=== PATIENT | female | born 1935 | race Caucasian/White ===

== ENCOUNTER 2017-04-07 08:25 | Emergency (ER) | payer MEDICARE, BC ==
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
--- NOTE | 2017-04-07 10:26 | CT ---
Head wo Cont HISTORY: Confusion Axial spiral noncontrasted CT scan of the brain was obtained along with high-resolution bone window r econstructions. There are no prior exams for comparison. FINDINGS: No acute intracranial hemorrhage or infarct is identified. I see no mass lesion, mass effec t, or midline shift. Vague low-attenuation changes are seen throughout the deep white matter cerebral hemispheres bilaterally consistent with chronic microvascular ischemic disease. There is mild genera lized cerebral atrophy. Possible tiny old lacunar infarct is noted left basal ganglia. No abnormal ex tra-axial fluid collections are seen. Bony structures are unremarkable. Visualized paranasal sinuses and mastoid air cells are clear. Atherosclerotic calcifications noted in the intracavernous portion o f the distal ICA bilaterally and in the distal vertebral artery bilaterally. IMPRESSION: 1. Chronic deep white matter microvascular ischemic changes cerebral hemispheres bilaterally. 2. Generalized cerebral atrophy. 3. Possible tiny old lacunar infarct left basal ganglia. 4. Atherosclerotic vascular calcification. 5. No acute hemorrhage, infarct, or other acute intracranial abnormality is identified. Findings were called to the Emergency Department at 1021 hours. Total DLP 687 mGycm
[2017-04-07 13:15] VITALS: BP 146/84
== END 2017-04-07 13:23 | disposition home or self-care (01) ==
LOC: JP.ED 08:25
DX: G31.84 Mild cognitive impairment of uncertain or unknown etiology (principal); I48.91 Unspecified atrial fibrillation; E78.00 Pure hypercholesterolemia, unspecified; I12.9 Hypertensive chronic kidney disease with stage 1 through stage 4 chronic kidney disease, or unspecified chronic kidney disease; N18.9 Chronic kidney disease, unspecified; Z79.01 Long term (current) use of anticoagulants; Z79.899 Other long term (current) drug therapy; Z95.2 Presence of prosthetic heart valve; Z88.8 Allergy status to other drugs, medicaments and biological substances
CPT/HCPCS: 36415; 70450; 70450-26; 80053; 81001; 85025; 85610; 99284; 99285-25

== ENCOUNTER 2017-07-07 17:57 | Emergency (ER) | payer BC, MEDICARE ==
[2017-07-07 18:07] VITALS: BP 164/72
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
== END 2017-07-07 18:54 | disposition home or self-care (01) ==
LOC: JP.ED 17:57
DX: Z04.1 Encounter for examination and observation following transport accident (principal); V89.2XXA Person injured in unspecified motor-vehicle accident, traffic, initial encounter; I48.91 Unspecified atrial fibrillation; I10 Essential (primary) hypertension; Z79.01 Long term (current) use of anticoagulants; Z79.899 Other long term (current) drug therapy; Z88.8 Allergy status to other drugs, medicaments and biological substances
CPT/HCPCS: 99282; 99284

== ENCOUNTER 2018-08-09 14:17 | Emergency (ER) | payer MEDICARE ==
[2018-08-09 14:23] VITALS: BP 132/49
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
== END 2018-08-09 15:54 ==
LOC: JP.ED 14:17
DX: K64.4 Residual hemorrhoidal skin tags (principal); I12.9 Hypertensive chronic kidney disease with stage 1 through stage 4 chronic kidney disease, or unspecified chronic kidney disease; N18.9 Chronic kidney disease, unspecified; Z79.01 Long term (current) use of anticoagulants; Z79.899 Other long term (current) drug therapy; Z88.8 Allergy status to other drugs, medicaments and biological substances
CPT/HCPCS: 36415; 80048; 85025; 85610; 99285

== ENCOUNTER 2018-11-28 14:38 | Inpatient (IN) | payer MEDICARE ==
--- NOTE | 2018-11-28 15:03 | EDM.PDOC ---
ED HPI GENERAL MEDICAL PROBLEM - General Chief Complaint: Respiratory Problem Stated Complaint: [facility] Time Seen by Provider: 11/28/18 14:50 Source of Information: Reports: EMS, [facility] Records, RN History Limitations: Reports: No Limitations - History of Present Illness INITIAL COMMENTS - FREE TEXT/NARRATIVE: 83-year-old female who apparently is being treated as an outpatient for bronchitis or pneumonia was reassessed by her primary provider today and it was felt she was not responding to outpatient treatment. She appeared fatigued, weak , somewhat short of breath and was running a low-grade fever. It was felt she needed further workup so was sent to the emergency room. They also discovered her INR was 7.0, her primary provider would not talk to me for additional information. Onset: Unknown/Unsure Associated Symptoms: Reports: Cough, Fever/Chills, Malaise, Shortness of Breath , Weakness denies Pain Score (Numeric/FACES): 0 - Related Data Allergies Allergy/AdvReac Type Severity Reaction Status Date / Time lisinopril AdvReac Cough Verified 11/28/18 16:06 losartan [Losartan] AdvReac Cough Verified 11/28/18 16:06 Home Meds: Home Meds Metoprolol Tartrate [Lopressor] 25 mg PO BID 05/03/14 [History] Simvastatin 10 mg PO BEDTIME 05/03/14 [History] Warfarin Sodium 5 mg PO ASDIRECTED 05/03/14 [History] Multivitamin [Multi Vitamin Daily] 1 tab PO DAILY 05/17/14 [History] Cyanocobalamin (Vitamin B-12) [B-12] 1,000 mcg PO DAILY 04/07/17 [History] Aspirin [Clinch Aspirin] 1 tab PO DAILY 08/09/18 [History] Cholecalciferol (Vitamin D3) [Delta D3] 800 unit PO DAILY 08/09/18 [History] Dextrin [Fiber] 1 tsp PO DAILY 08/09/18 [History] Losartan Potassium 1 tab PO DAILY 08/09/18 [History] Omeprazole 1 tab PO DAILY 08/09/18 [History] Potassium Chloride [Klor-Con 10] 1 tab PO DAILY 08/09/18 [History] Furosemide [Lasix] 80 mg PO DAILY 11/28/18 [History] Ipratropium/Albuterol Sulfate [Iprat-Albut 0.5-3(2.5) MG/3 ML] 3 ml IH Q6HR [History] Warfarin Sodium [Coumadin] 7.5 mg PO ASDIRECTED 11/28/18 [History] Past Medical History HEENT History: Reports: Impaired Vision Cardiovascular History: Reports: Afib, High Cholesterol, Hypertension, Other ( See Below) Other Cardiovascular History: mitral valve insufficiency edema lower legs Genitourinary History: Reports: Chronic Renal Insuffiency, Other (See Below) Other Genitourinary History: 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: Musculoskeletal History: Reports: Other (See Below) Other Musculoskeletal History: hematoma r leg Neurological History: Reports: Other (See Below) Other Neuro History: mild cognitive impairment Endocrine/Metabolic History: Reports: Osteopenia Hematologic History: Reports: Other (See Below) Other Hematologic History: vit D onsufficiency - Infectious Disease History Infectious Disease History: Reports: Chicken Pox, Measles, Meningitis - Past Surgical History Cardiovascular Surgical History: Reports: Valve Replacement GI Surgical History: Reports: Colonoscopy Social & Family History - Caffeine Use Caffeine Use: Reports: Coffee ED ROS GENERAL - Review of Systems Review Of Systems: See Below (Patient denies any symptoms, review of systems obtained from chart and nursing) Constitutional: Reports: Fever, Chills Respiratory: Reports: Shortness of Breath, Wheezing, Cough Cardiovascular: Denies: Chest Pain GI/Abdominal: Denies: Nausea, Vomiting Skin: Reports: Pallor Neurological: Reports: Confusion (Chronic, stable) ED EXAM, GENERAL - Physical Exam Exam: See Below Exam Limited By: No Limitations General Appearance: Alert, No Apparent Distress Eye Exam: Bilateral Eye: EOMI, Other (Conjunctiva are pale) Head: Atraumatic Respiratory/Chest: No Respiratory Distress, Wheezing (Diffuse expiratory wheezing and scattered rhonchi are heard bilaterally) Cardiovascular: Regular Rate, Rhythm GI/Abdominal: Soft Extremities: Other (Patient has significant eye lateral lower extremity edema which is wrapped with Karl wrapping, not removed) Psychiatric: Depressed Mood, Flat Affect Skin Exam: Warm, Dry, Pallor Course - Vital Signs Last Recorded V/S: Last Vital Signs Temp 99.2 F 11/28/18 16:56 Pulse 79 11/28/18 16:56 Resp 18 11/28/18 16:56 BP 126/48 L 11/28/18 16:56 Pulse Ox 93 L 11/28/18 16:57 - Orders/Labs/Meds Orders: Active Orders 24 hr Category Date Time Status CULTURE BLOOD [BC] Stat Lab 11/28/18 15:30 Received CULTURE BLOOD [BC] Stat Lab 11/28/18 15:42 Received PATIENT RETYPE [BBK] Urgent Lab 11/28/18 15:00 Results RED BLOOD CELLS LP [BBK] Urgent Lab 11/28/18 15:00 Results TYPE AND SCREEN [BBK] Urgent Lab 11/28/18 15:00 Results Levofloxacin/Dextrose 5%-Water [Levaquin in D5W 500 MG/ Med 11/28/18 16:30 Active 100 ML] 500 mg Premix Bag 1 bag IV Q24H cefTRIAXone [Rocephin] 1 gm Med 11/28/18 16:00 Active Sodium Chloride 0.9% [Normal Saline] 50 ml IV Q24H Blood Culture x2 Reflex Set [OM.PC] Urgent Oth 11/28/18 15:23 Ordered Transfuse Red Blood Cells [COMM] Urgent Oth 11/28/18 15:23 Ordered Medication Orders Acetaminophen (Tylenol) 650 mg PO Q4H PRN PRN Reason: Pain (Mild 1-3)/fever Albuterol (Proventil Neb Soln) 2.5 mg NEB Q4H PRN PRN Reason: Shortness Of Breath/wheezing Albuterol/Ipratropium (Duoneb 3.0-0.5 Mg/3 Ml) 3 ml NEB QID PRN PRN Reason: Shortness Of Breath/wheezing Aspirin (Aspirin) 81 mg PO DAILY TAISHA Furosemide (Lasix) 20 mg PO DAILY TAISHA Haloperidol Lactate (Haldol) 1 mg IVPUSH Q2H PRN PRN Reason: Agitation Ceftriaxone Sodium 1 gm/ (Sodium Chloride) 50 mls @ 100 mls/hr IV Q24H [facility] Last Admin: 11/28/18 16:31 Dose: 100 mls/hr Levofloxacin/Dextrose 500 mg/ (Premix) 100 mls @ 100 mls/hr IV Q24H TAISHA Last Admin: 11/28/18 16:59 Dose: 100 mls/hr Sodium Chloride (Normal Saline) 1,000 mls @ 75 mls/hr IV ASDIRECTED [facility] Ferric Sodium Gluconate Complex 250 mg/ Sodium Chloride 120 mls @ 50 mls/hr IV ONETIME ONE Stop: 11/28/18 20:23 Losartan Potassium (Cozaar) 50 mg PO DAILY [facility] Melatonin (Melatonin) 9 mg PO BEDTIME TAISHA Metoprolol Tartrate (Lopressor) 25 mg PO BID TAISHA Ondansetron HCl (Zofran) 4 mg IV Q4H PRN PRN Reason: Nausea/Vomiting Pantoprazole Sodium (Protonix) 40 mg PO ACBREAKFAST TAISHA Polyethylene Glycol (Miralax) 17 gm PO DAILY PRN PRN Reason: Constipation Simvastatin (Zocor) 10 mg PO DAILY TAISHA Sodium Chloride (Saline Flush) 10 ml FLUSH ASDIRECTED PRN PRN Reason: Keep Vein Open Labs: Laboratory Tests 11/28/18 11/28/18 11/28/18 Range/Units 15:00 15:00 15:09 WBC 14.0 H (4.5-11.0) K/uL RBC 2.48 L (3.30-5.50) M/uL Hgb 7.4 L D (12.0-15.0) g/dL Hct 24.1 L (36.0-48.0) % MCV 97 (80-98) fL MCH 30 (27-31) pg MCHC 31 L (32-36) % Plt Count 358 (150-400) K/uL Neut % (Auto) 80 H (36-66) % Lymph % (Auto) 4 L (24-44) % [place] % (Auto) 16 H (2-6) % Eos % (Auto) 0 L (2-4) % Baso % (Auto) 0 (0-1) % Percent Retic (0.5-1.5) % Sodium (140-148) mmol/L Potassium (3.6-5.2) mmol/L Chloride (100-108) mmol/L Carbon Dioxide (21-32) mmol/L Anion Gap (5.0-14.0) mmol/L BUN (7-18) mg/dL Creatinine (0.6-1.0) mg/dL Est Cr Clr Drug Dosing mL/min Estimated GFR (MDRD) (>60) Glucose (74-106) mg/dL Lactic Acid (0.4-2.0) mmol/L Calcium (8.5-10.1) mg/dL Iron (50-170) ug/dL TIBC (250-450) ug/dl % Saturation (20-55) % Ferritin 55 (8-388) ng/ml Total Bilirubin (0.2-1.0) mg/dL AST (15-37) U/L ALT (12-78) U/L Alkaline Phosphatase (46-116) U/L Lactate Dehydrogenase 251 H (82-234) U/L Total Protein (6.4-8.2) g/dL Albumin (3.4-5.0) g/dL Globulin (2.3-3.5) g/dL Albumin/Globulin Ratio (1.2-2.2) Vitamin B12 1845 H (193-986) pg/ml Folate > 20.0 (8.6-58.9) ng/ml Blood Type O POSITIVE Gel Antibody Screen Negative Crossmatch See Detail 11/28/18 11/28/18 11/28/18 Range/Units 15:09 15:09 15:26 WBC (4.5-11.0) K/uL RBC (3.30-5.50) M/uL Hgb (12.0-15.0) g/dL Hct (36.0-48.0) % MCV (80-98) fL MCH (27-31) pg MCHC (32-36) % Plt Count (150-400) K/uL Neut % (Auto) (36-66) % Lymph % (Auto) (24-44) % [place] % (Auto) (2-6) % Eos % (Auto) (2-4) % Baso % (Auto) (0-1) % Percent Retic 1.4 (0.5-1.5) % Sodium 136 L (140-148) mmol/L Potassium 5.4 H (3.6-5.2) mmol/L Chloride 102 (100-108) mmol/L Carbon Dioxide 26 (21-32) mmol/L Anion Gap 13.4 (5.0-14.0) mmol/L BUN 69 H D (7-18) mg/dL Creatinine 2.9 H D (0.6-1.0) mg/dL Est Cr Clr Drug Dosing 14.31 mL/min Estimated GFR (MDRD) 15 L (>60) Glucose 123 H (74-106) mg/dL Lactic Acid 2.1 H (0.4-2.0) mmol/L Calcium 8.3 L (8.5-10.1) mg/dL Iron (50-170) ug/dL TIBC (250-450) ug/dl % Saturation (20-55) % Ferritin (8-388) ng/ml Total Bilirubin 0.5 (0.2-1.0) mg/dL AST 36 (15-37) U/L ALT 28 (12-78) U/L Alkaline Phosphatase 96 (46-116) U/L Lactate Dehydrogenase (82-234) U/L Total Protein 5.9 L (6.4-8.2) g/dL Albumin 2.6 L (3.4-5.0) g/dL Globulin 3.3 (2.3-3.5) g/dL Albumin/Globulin Ratio 0.8 L (1.2-2.2) Vitamin B12 (193-986) pg/ml Folate (8.6-58.9) ng/ml Blood Type Gel Antibody Screen Crossmatch 11/28/18 Range/Units 15:26 WBC (4.5-11.0) K/uL RBC (3.30-5.50) M/uL Hgb (12.0-15.0) g/dL Hct (36.0-48.0) % MCV (80-98) fL MCH (27-31) pg MCHC (32-36) % Plt Count (150-400) K/uL Neut % (Auto) (36-66) % Lymph % (Auto) (24-44) % [place] % (Auto) (2-6) % Eos % (Auto) (2-4) % Baso % (Auto) (0-1) % Percent Retic (0.5-1.5) % Sodium (140-148) mmol/L Potassium (3.6-5.2) mmol/L Chloride (100-108) mmol/L Carbon Dioxide (21-32) mmol/L Anion Gap (5.0-14.0) mmol/L BUN (7-18) mg/dL Creatinine (0.6-1.0) mg/dL Est Cr Clr Drug Dosing mL/min Estimated GFR (MDRD) (>60) Glucose (74-106) mg/dL Lactic Acid (0.4-2.0) mmol/L Calcium (8.5-10.1) mg/dL Iron 19 L (50-170) ug/dL TIBC 269 (250-450) ug/dl % Saturation 7 L (20-55) % Ferritin (8-388) ng/ml Total Bilirubin (0.2-1.0) mg/dL AST (15-37) U/L ALT (12-78) U/L Alkaline Phosphatase (46-116) U/L Lactate Dehydrogenase (82-234) U/L Total Protein (6.4-8.2) g/dL Albumin (3.4-5.0) g/dL Globulin (2.3-3.5) g/dL Albumin/Globulin Ratio (1.2-2.2) Vitamin B12 (193-986) pg/ml Folate (8.6-58.9) ng/ml Blood Type Gel Antibody Screen Crossmatch Meds: Medications Generic Name Dose Route Start Last Admin Trade Name Freq PRN Reason Stop Dose Admin Acetaminophen 650 mg 11/28/18 16:45 Tylenol PO Q4H PRN Pain (Mild 1-3)/fever Albuterol 2.5 mg 11/28/18 16:45 Proventil Neb Soln NEB Q4H PRN Shortness Of Breath/wheezing Albuterol/Ipratropium 3 ml 11/28/18 16:45 Duoneb 3.0-0.5 Mg/3 Ml NEB QID PRN Shortness Of Breath/wheezing Aspirin 81 mg 11/29/18 09:00 Aspirin PO DAILY TAISHA Furosemide 20 mg 11/29/18 09:00 Lasix PO DAILY TAISHA Haloperidol Lactate 1 mg 11/28/18 16:45 Haldol IVPUSH Q2H PRN Agitation Ceftriaxone Sodium 1 gm/ 50 mls @ 100 mls/hr 11/28/18 16:00 11/28/18 16:31 Sodium Chloride IV 100 mls/hr Q24H TAISHA Administration Levofloxacin/Dextrose 500 mg/ 100 mls @ 100 mls/hr 11/28/18 16:30 11/28/18 16 :59 Premix IV 100 mls/hr Q24H TAISHA Administration Sodium Chloride 1,000 mls @ 75 mls/hr 11/28/18 16:45 Normal Saline IV ASDIRECTED TAISHA Ferric Sodium Gluconate 120 mls @ 50 mls/hr 11/28/18 18:00 Complex 250 mg/ Sodium IV 11/28/18 20:23 Chloride ONETIME ONE Losartan Potassium 50 mg 11/29/18 09:00 Cozaar PO DAILY TAISHA Melatonin 9 mg 11/28/18 21:00 Melatonin PO BEDTIME TAISHA Metoprolol Tartrate 25 mg 11/28/18 21:00 Lopressor PO BID TAISHA Ondansetron HCl 4 mg 11/28/18 16:45 Zofran IV Q4H PRN Nausea/Vomiting Pantoprazole Sodium 40 mg 11/29/18 07:30 Protonix PO ACBREAKFAST TAISHA Polyethylene Glycol 17 gm 11/28/18 16:45 Miralax PO DAILY PRN Constipation Simvastatin 10 mg 11/29/18 09:00 Zocor PO DAILY TAISHA Sodium Chloride 10 ml 11/28/18 16:45 Saline Flush FLUSH ASDIRECTED PRN Keep Vein Open Discontinued Medications Generic Name Dose Route Start Last Admin Trade Name Freq PRN Reason Stop Dose Admin Phytonadione 1 mg/ Sodium 50.5 mls @ 100 mls/hr 11/28/18 16:00 11/28/18 16:28 Chloride IV 11/28/18 16:30 100 mls/hr ONETIME ONE Administration Non-Formulary Medication 1 tab 11/29/18 09:00 Potassium Chloride [Klor-Con 10] PO DAILY TAISHA - Re-Assessments/Exams Free Text/Narrative Re-Assessment/Exam: 11/28/18 15:26 Portable chest x-ray, CBC, CMP were obtained. Chest x-ray showed small bilateral effusions with a possible infiltrate in the left base. Hemoglobin returned only 7.4, significantly lower than her previous levels. 11/28/18 15:31 Dr. Sandhu of the hospitalist service was informed of the patient's significant anemia, ongoing pulmonary symptoms despite outpatient treatment and hypercoagulation. He agreed to assess the patient for further evaluation and admission to the hospital for treatment. Departure - Departure Time of Disposition: 16:46 Disposition: Admitted As Inpatient 64 Clinical Impression: Blood loss anemia, Bronchitis, Supratherapeutic INR - Discharge Information
--- NOTE | 2018-11-28 15:35 | CRLCR ---
Indication: Bronchitis Technique: Chest 1 view Comparison: None. Findings/Impression: Status post median sternotomy and valve replacement. Lung volumes are low which accentuates the cardiac size. Questionable patchy infiltrate in the right infrahilar region. No significant effusion. No pneumothorax. Normal pulmonary vasculature. No acute osseous abnormality. Impression: : Questionable patchy infiltrate in the right infrahilar region. Consider PA and lateral chest radiograph for further evaluation. Dictated by Alyssia Jackson MD @ Nov 28 2018 3:31PM Signed by Dr. Alyssia Jackson @ Nov 28 2018 3:32PM
--- NOTE | 2018-11-28 15:40 | PCM.HP ---
H&P History of Present Illness - General Date of Service: 11/28/18 Admit Problem/Dx: Admission Diagnosis/Problem Admission Diagnosis/Problem Pneumonia Source of Information: Provider, RN Notes Reviewed History Limitations: Reports: Altered Mental Status (Dementia) - History of Present Illness Initial Comments - Free Text/Narative: Ms. Ferguson is an 83-year-old woman who is admitted through the emergency department with bilateral pneumonia. She has had a history of progressive weakness and fatigue over the past few weeks. Gonzales to have probable respiratory tract infection and has received a course of oral antibiotic therapy. Today at the correction was noted to be more hypoxic and was referred to the clinic for further evaluation. She was sent from the clinic to the emergency department. White blood cell count is elevatedand she appears to have an infiltrate at the right base. Because of her underlying dementia she is unable to provide any meaningful history concerning recent symptoms or review of systems. - Related Data Allergies/Adverse Reactions: Allergies Allergy/AdvReac Type Severity Reaction Status Date / Time lisinopril AdvReac Cough Verified 11/28/18 16:06 losartan [Losartan] AdvReac Cough Verified 11/28/18 16:06 Home Medications: Home Meds Metoprolol Tartrate [Lopressor] 25 mg PO BID 05/03/14 [History] Simvastatin 10 mg PO DAILY 05/03/14 [History] Warfarin Sodium 5 mg PO ASDIRECTED 05/03/14 [History] Multivitamin [Multi Vitamin Daily] 1 tab PO DAILY 05/17/14 [History] Cyanocobalamin (Vitamin B-12) [B-12] 1,000 mcg PO DAILY 04/07/17 [History] Aspirin [Keyes Aspirin] 1 tab PO DAILY 08/09/18 [History] Cholecalciferol (Vitamin D3) [Delta D3] 800 unit PO DAILY 08/09/18 [History] Dextrin [Fiber] 1 tsp PO DAILY 08/09/18 [History] Losartan Potassium 1 tab PO DAILY 08/09/18 [History] Omeprazole 1 tab PO DAILY 08/09/18 [History] Potassium Chloride [Klor-Con 10] 1 tab PO DAILY 08/09/18 [History] Furosemide [Lasix] 80 mg PO DAILY 11/28/18 [History] Ipratropium/Albuterol Sulfate [Iprat-Albut 0.5-3(2.5) MG/3 ML] 3 ml IH Q6HR [History] Warfarin Sodium [Coumadin] 7.5 mg PO ASDIRECTED 11/28/18 [History] Past Medical History HEENT History: Reports: Impaired Vision Cardiovascular History: Reports: Afib, CAD, High Cholesterol, Hypertension, Other (See Below) Other Cardiovascular History: mitral valve insufficiency edema lower legs Genitourinary History: Reports: Chronic Renal Insuffiency, Other (See Below) Other Genitourinary History: 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: Musculoskeletal History: Reports: Other (See Below) Other Musculoskeletal History: hematoma r leg Neurological History: Reports: Alzheimers Disease, Other (See Below) Other Neuro History: mild cognitive impairment Endocrine/Metabolic History: Reports: Osteopenia Hematologic History: Reports: Other (See Below) Other Hematologic History: vit D onsufficiency - Infectious Disease History Infectious Disease History: Reports: Chicken Pox, Measles, Meningitis - Past Surgical History Cardiovascular Surgical History: Reports: Coronary Artery Bypass, Valve Replacement GI Surgical History: Reports: Colonoscopy Social & Family History - Caffeine Use Caffeine Use: Reports: Coffee H&P Review of Systems - Review of Systems: Review Of Systems: Unable To Obtain General: Reports: ROS unobtainable (dementia) Exam - Exam Exam: See Below - Vital Signs Vital Signs: Last Vital Signs Temp 97.3 F 11/28/18 14:50 Pulse 80 11/28/18 14:50 Resp 16 11/28/18 14:50 BP 108/45 L 11/28/18 14:50 Pulse Ox 93 L 11/28/18 14:50 Weight: 227 lb 12.8 oz - Exam Quality Assessment: DVT Prophylaxis General: Alert, Cooperative, Mild Distress HEENT: Conjunctiva Clear, Hearing Intact, Normal Nasal Septum, Posterior Pharynx Clear, Pupils Equal. No: Mucosa Moist & Prue Neck: Supple, Trachea Midline, +2 Carotid Pulse wo Bruit Lungs: Rales, Wheezing Cardiovascular: Regular Rate, Regular Rhythm, Normal S1, Normal S2, Systolic Murmur. No: Diastolic Murmur GI/Abdominal Exam: Soft, Non-Tender, No Organomegaly, No Distention Back Exam: Normal Inspection, Full Range of Motion Extremities: Non-Tender, Pedal Edema Skin: Warm, Dry, Intact Neurological: Cranial Nerves Intact, Strength Equal Bilateral, Normal Speech, Normal Tone, Sensation Intact. No: Focal Deficit Neuro Extensive - Mental Status: Alert, Disorientation to Person, Disorientation to Place, Disorientation to Time, Inattentive, Memory Loss- Remote Events, Memory Loss-Recent Events. No: Oriented x3, Normal Cognition, Memory Intact - Patient Data Lab Results Last 24 hrs: Laboratory Results - last 24 hr 11/28/18 11/28/18 Range/Units 15:09 15:26 WBC 14.0 H (4.5-11.0) K/uL RBC 2.48 L (3.30-5.50) M/uL Hgb 7.4 L D (12.0-15.0) g/dL Hct 24.1 L (36.0-48.0) % MCV 97 (80-98) fL MCH 30 (27-31) pg MCHC 31 L (32-36) % Plt Count 358 (150-400) K/uL Neut % (Auto) 80 H (36-66) % Lymph % (Auto) 4 L (24-44) % [place] % (Auto) 16 H (2-6) % Eos % (Auto) 0 L (2-4) % Baso % (Auto) 0 (0-1) % Percent Retic 1.4 (0.5-1.5) % Result Diagrams: 11/28/18 15:09 11/28/18 15:09 *Q Meaningful Use (ADM) - VTE Risk Assess *Q Each Risk Factor Represents 1 Point: Obesity ( BMI > 25 kg/m2), Serious lung disease including pneumonia Total Score 1 Point Risk Factors: 2 Each Risk Factor Represents 2 Points: None Total Score 2 Point Risk Factors: 0 Each Risk Factor Represents 3 Points: Age 75 Years or Greater Total Score 3 Point Risk Factors: 3 Each Risk Factor Represents 5 Points: None Total Score 5 Point Risk Factors: 0 Venous Thromboembolism Risk Factor Score *Q: 5 Problem List Initiated/Reviewed/Updated: Yes Orders Last 24hrs: Active Orders 24 hr Category Date Time Status Patient Status Manage Transfer [TRANSFER] Routine ADT 11/28/18 15:30 Active COMPREHENSIVE METABOLIC PN,CMP [CHEM] Stat Lab 11/28/18 15:09 Received CULTURE BLOOD [BC] Stat Lab 11/28/18 15:23 Ordered CULTURE BLOOD [BC] Stat Lab 11/28/18 15:23 Ordered FERRITIN [CHEM] Stat Lab 11/28/18 15:00 Received FOLIC ACID [CHEM] Stat Lab 11/28/18 15:00 Received IRON/TIBC [CHEM] Stat Lab 11/28/18 15:26 Ordered LACTATE DEHYDROGENASE,LDH [CHEM] Stat Lab 11/28/18 15:00 Received LACTIC ACID [CHEM] Stat Lab 11/28/18 15:09 Received RED BLOOD CELLS LP [BBK] Urgent Lab 11/28/18 15:00 Received TYPE AND SCREEN [BBK] Urgent Lab 11/28/18 15:00 Received VITAMIN B12 [CHEM] Stat Lab 11/28/18 15:00 Received Levofloxacin/Dextrose 5%-Water [Levaquin in D5W 500 MG/ Med 11/28/18 16:30 Active 100 ML] 500 mg Premix Bag 1 bag IV Q24H Phytonadione [AquaMephyton] 1 mg Med 11/28/18 16:00 Active Sodium Chloride 0.9% [Normal Saline] 50 ml IV ONETIME cefTRIAXone [Rocephin] 1 gm Med 11/28/18 16:00 Active Sodium Chloride 0.9% [Normal Saline] 50 ml IV Q24H Blood Culture x2 Reflex Set [OM.PC] Urgent Oth 11/28/18 15:23 Ordered Transfuse Red Blood Cells [COMM] Urgent Oth 11/28/18 15:23 Ordered Resuscitation Status Routine Resus Stat 11/28/18 15:32 Ordered Medication Orders Ceftriaxone Sodium 1 gm/ (Sodium Chloride) 50 mls @ 100 mls/hr IV Q24H TAISHA Levofloxacin/Dextrose 500 mg/ (Premix) 100 mls @ 100 mls/hr IV Q24H TAISHA Phytonadione 1 mg/ Sodium (Chloride) 50.5 mls @ 100 mls/hr IV ONETIME ONE Stop: 11/28/18 16:30 Assessment/Plan Comment:: ASSESSMENT AND PLAN RIGHT LUNG PNEUMONIA-history of symptoms over the past 2-3 weeks, failed outpatient antibiotic therapy. White blood cell count is elevated and chest x- ray shows evidence of a right basilar infiltrate. -Blood cultures pending -Sputum culture pending -IV fluids for hydration -IV ceftriaxone and levofloxacin,pending culture results HYPOXIA-secondary to pneumonia -Supplemental oxygen as needed -nebulizer therapy as needed ANEMIA-hemoglobin of 7.4 and I suspect that this will drop further with hydration, appears to be chronic in nature -Labs pending for further evaluation including B12, folic acid, LDH, iron and iron binding, reticulocyte count -transfuse 1 unit of red blood cells -Recheck hemoglobin in a.m. CKD STAGE V -Closely monitor urine output and renal function during hospital stay LACTIC ACIDOSIS-likely secondary to dehydration, no evidence of sepsis CHRONIC ANTICOAGULATION- status post post mitral valve replacement, INR supratherapeutic -vitamin K 1 mg IV now -Recheck INR in a.m. DEMENTIA -Melatonin 9 mg by mouth daily at bedtime -Haldol when necessary as needed PALLIATIVE CARE-is documented POLST, DNR/DNI MAINTENANCE ISSUES -DVT prophylaxis; current therapy with warfarin should provide adequate DVT prophylaxis -GI prophylaxis; ot indicated -[place] catheter; not indicated -Nutrition; g sodium diet -Nicotine dependence; not required CODE STATUS-DNR/DNI ADMISSION STATUS-patient will be admitted to inpatient status, expect at least a 2 night hospital stay for evaluation and management of problems as outlined above. At the time of this admission I do not reasonably expected evaluation and management of this problem will require more than a 96 hour hospital stay. DISPOSITION-anticipate discharge back to correction PRIMARY CARE PROVIDER-Dr. Louise
[2018-11-28] MEDS ORDERED: Phytonadione 1 MG in Sodium Chloride 0.9% 50 ML IV ONE (16:00)
[2018-11-28] MEDS: cefTRIAXone 1 GM in Sodium Chloride 0.9% 50 ML IV SCH (16:31)
[2018-11-28] MEDS ORDERED: Albuterol/Ipratropium 3.0-0.5 MG/3 ML Neb Soln NEB PRN (16:45)
[2018-11-28] MEDS ORDERED: Acetaminophen 325 MG Tab PO PRN (16:45)
[2018-11-28] MEDS ORDERED: Sodium Chloride 0.9% 10 ML Syringe FLUSH PRN (16:45)
[2018-11-28] MEDS ORDERED: Albuterol 0.083% 2.5 MG/3 ML Neb Soln NEB PRN (16:45)
[2018-11-28] MEDS ORDERED: Sodium Chloride 0.9% 1,000 ML IV SCH (16:45)
[2018-11-28] MEDS ORDERED: Ondansetron 4 MG/2 ML SDV IV PRN (16:45)
[2018-11-28] MEDS ORDERED: Polyethylene Glycol 3350 Powder 17 GM Packet PO PRN (16:45)
[2018-11-28] MEDS ORDERED: Haloperidol Lactate 5 MG/ML SDV IVPUSH PRN (16:45)
[2018-11-28] MEDS: Levofloxacin/Dextrose 5%-Water 500 MG in Premix Bag 1 BAG IV SCH (16:59)
[2018-11-28] MEDS ORDERED: Sodium Ferric Gluconate Cmplex 250 MG in Sodium Chloride 0.9% 100 ML IV ONE ×2 (18:00→21:00)
[2018-11-28] MEDS: Metoprolol Tartrate 25 MG Tab PO SCH (21:10)
[2018-11-28] MEDS: Melatonin 3 MG Tab PO SCH (21:12)
[2018-11-29] MEDS: Pantoprazole 40 MG Tab.CR PO SCH (07:43)
[2018-11-29] MEDS ORDERED: POTASSIUM CHLORIDE PO SCH (09:00)
[2018-11-29] MEDS: Aspirin 81 MG Tab.Chew PO SCH (09:23)
[2018-11-29] MEDS: Furosemide 20 MG Tab PO SCH (09:23)
[2018-11-29] MEDS: Metoprolol Tartrate 25 MG Tab PO SCH ×2 (09:23→20:56)
[2018-11-29] MEDS: Losartan 50 MG Tab PO SCH (09:24)
[2018-11-29] MEDS: Simvastatin 20 MG Tab PO SCH (09:24)
[2018-11-29] MEDS ORDERED: Warfarin 5 MG Tab PO ONE (15:00)
[2018-11-29] MEDS: cefTRIAXone 1 GM in Sodium Chloride 0.9% 50 ML IV SCH (15:23)
[2018-11-29] MEDS ORDERED: Sodium Ferric Gluconate Cmplex 250 MG in Sodium Chloride 0.9% 100 ML IV ONE (16:00)
[2018-11-29] MEDS: Levofloxacin/Dextrose 5%-Water 500 MG in Premix Bag 1 BAG IV SCH (16:03)
--- NOTE | 2018-11-29 18:04 | PCM.PN ---
- General Info Date of Service: 11/29/18 Subjective Update: Ms. Ferguson has been fairly stable since admission, hemoglobin increased to only 7.7 following transfusion of 1 unit of red blood cells. Vital signs have remained stable and she has been afebrile. She is unable to provide meaningful history concerning symptoms or review of systems because of dementia. - Patient Data Vitals - Most Recent: Last Vital Signs Temp 97.9 F 11/29/18 14:42 Pulse 70 11/29/18 14:42 Resp 18 11/29/18 14:42 BP 113/82 11/29/18 14:42 Pulse Ox 96 11/29/18 14:42 Weight - Most Recent: 218 lb 14.387 oz I&O - Last 24 Hours: Intake & Output 11/29/18 11/29/18 11/29/18 06:59 14:59 22:59 Intake Total 569 630 Balance 569 630 Lab Results Last 24 Hours: Laboratory Results - last 24 hr 11/28/18 11/29/18 11/29/18 Range/Units 15:00 05:54 05:54 WBC 12.1 H (4.5-11.0) K/uL RBC 2.50 L (3.30-5.50) M/uL Hgb 7.7 L (12.0-15.0) g/dL Hct 23.9 L (36.0-48.0) % MCV 96 (80-98) fL MCH 31 (27-31) pg MCHC 32 (32-36) % Plt Count 320 (150-400) K/uL Neut % (Auto) 75 H (36-66) % Lymph % (Auto) 7 L (24-44) % [place] % (Auto) 18 H (2-6) % Eos % (Auto) 0 L (2-4) % Baso % (Auto) 0 (0-1) % PT (9.5-12.0) sec INR (0.80-1.20) Sodium (140-148) mmol/L Potassium (3.6-5.2) mmol/L Chloride (100-108) mmol/L Carbon Dioxide (21-32) mmol/L Anion Gap (5.0-14.0) mmol/L BUN (7-18) mg/dL Creatinine (0.6-1.0) mg/dL Est Cr Clr Drug Dosing mL/min Estimated GFR (MDRD) (>60) Glucose (74-106) mg/dL Lactic Acid 1.6 (0.4-2.0) mmol/L Calcium (8.5-10.1) mg/dL Magnesium (1.8-2.4) mg/dL Blood Type O POSITIVE Gel Antibody Screen Negative Crossmatch See Detail 11/29/18 11/29/18 Range/Units 05:54 05:54 WBC (4.5-11.0) K/uL RBC (3.30-5.50) M/uL Hgb (12.0-15.0) g/dL Hct (36.0-48.0) % MCV (80-98) fL MCH (27-31) pg MCHC (32-36) % Plt Count (150-400) K/uL Neut % (Auto) (36-66) % Lymph % (Auto) (24-44) % [place] % (Auto) (2-6) % Eos % (Auto) (2-4) % Baso % (Auto) (0-1) % PT 27.1 H (9.5-12.0) sec INR 2.60 H D (0.80-1.20) Sodium 136 L (140-148) mmol/L Potassium 5.2 (3.6-5.2) mmol/L Chloride 104 (100-108) mmol/L Carbon Dioxide 26 (21-32) mmol/L Anion Gap 11.2 (5.0-14.0) mmol/L BUN 71 H (7-18) mg/dL Creatinine 2.7 H (0.6-1.0) mg/dL Est Cr Clr Drug Dosing 15.43 mL/min Estimated GFR (MDRD) 17 L (>60) Glucose 138 H (74-106) mg/dL Lactic Acid (0.4-2.0) mmol/L Calcium 8.1 L (8.5-10.1) mg/dL Magnesium 2.0 (1.8-2.4) mg/dL Blood Type Gel Antibody Screen Crossmatch Davian Results Last 24 Hours: Microbiology 11/28/18 15:42 Aerobic Blood Culture - Preliminary Blood - Venous NO GROWTH AFTER 1 DAY Anaerobic Blood Culture - Preliminary NO GROWTH AFTER 1 DAY 11/28/18 15:30 Aerobic Blood Culture - Preliminary Blood - Venous - Lab Draw NO GROWTH AFTER 1 DAY Anaerobic Blood Culture - Preliminary NO GROWTH AFTER 1 DAY Med Orders - Current: Current Medications Acetaminophen (Tylenol) 650 mg PO Q4H PRN PRN Reason: Pain (Mild 1-3)/fever Albuterol (Proventil Neb Soln) 2.5 mg NEB Q4H PRN PRN Reason: Shortness Of Breath/wheezing Albuterol/Ipratropium (Duoneb 3.0-0.5 Mg/3 Ml) 3 ml NEB QID PRN PRN Reason: Shortness Of Breath/wheezing Aspirin (Aspirin) 81 mg PO DAILY [facility] Last Admin: 11/29/18 09:23 Dose: 81 mg Furosemide (Lasix) 20 mg PO DAILY [facility] Last Admin: 11/29/18 09:23 Dose: 20 mg Haloperidol Lactate (Haldol) 1 mg IVPUSH Q2H PRN PRN Reason: Agitation Ceftriaxone Sodium 1 gm/ (Sodium Chloride) 50 mls @ 100 mls/hr IV Q24H [facility] Last Admin: 11/29/18 15:23 Dose: 100 mls/hr Levofloxacin/Dextrose 500 mg/ (Premix) 100 mls @ 100 mls/hr IV Q24H [facility] Last Admin: 11/29/18 16:03 Dose: 100 mls/hr Sodium Chloride (Normal Saline) 1,000 mls @ 75 mls/hr IV ASDIRECTED [facility] Last Admin: 11/29/18 07:24 Dose: 75 mls/hr Ferric Sodium Gluconate Complex 250 mg/ Sodium Chloride 120 mls @ 50 mls/hr IV ONETIME ONE Stop: 11/29/18 18:23 Last Admin: 11/29/18 16:57 Dose: 50 mls/hr Losartan Potassium (Cozaar) 50 mg PO DAILY [facility] Last Admin: 11/29/18 09:24 Dose: 50 mg Melatonin (Melatonin) 9 mg PO BEDTIME [facility] Last Admin: 11/28/18 21:12 Dose: 9 mg Metoprolol Tartrate (Lopressor) 25 mg PO BID [facility] Last Admin: 11/29/18 09:23 Dose: 25 mg Ondansetron HCl (Zofran) 4 mg IV Q4H PRN PRN Reason: Nausea/Vomiting Pantoprazole Sodium (Protonix) 40 mg PO ACBREAKFAST [facility] Last Admin: 11/29/18 07:43 Dose: 40 mg Polyethylene Glycol (Miralax) 17 gm PO DAILY PRN PRN Reason: Constipation Simvastatin (Zocor) 10 mg PO DAILY [facility] Last Admin: 11/29/18 09:24 Dose: 10 mg Sodium Chloride (Saline Flush) 10 ml FLUSH ASDIRECTED PRN PRN Reason: Keep Vein Open Discontinued Medications Phytonadione 1 mg/ Sodium (Chloride) 50.5 mls @ 100 mls/hr IV ONETIME ONE Stop: 11/28/18 16:30 Last Admin: 11/28/18 16:28 Dose: 100 mls/hr Ferric Sodium Gluconate Complex 250 mg/ Sodium Chloride 120 mls @ 50 mls/hr IV ONETIME ONE Stop: 11/28/18 20:23 Last Admin: 11/28/18 18:20 Dose: Not Given Ferric Sodium Gluconate Complex 250 mg/ Sodium Chloride 120 mls @ 50 mls/hr IV ONETIME ONE Stop: 11/28/18 23:23 Last Admin: 11/28/18 21:12 Dose: 50 mls/hr Non-Formulary Medication (Potassium Chloride [Klor-Con 10]) 1 tab PO DAILY [facility] Warfarin Sodium (Coumadin) 5 mg PO ONETIME ONE Stop: 11/29/18 15:01 Last Admin: 11/29/18 15:16 Dose: 5 mg - Exam General: Alert, Cooperative, No Acute Distress. No: Oriented Lungs: Clear to Auscultation, Normal Respiratory Effort Cardiovascular: Regular Rate, Regular Rhythm, No Murmurs GI/Abdominal Exam: Soft, Non-Tender, No Organomegaly, No Distention Extremities: Non-Tender, No Pedal Edema - Problem List Review Problem List Initiated/Reviewed/Updated: Yes - My Orders Last 24 Hours: My Active Orders 11/28/18 21:00 Melatonin 9 mg PO BEDTIME Metoprolol Tartrate [Lopressor] 25 mg PO BID 11/29/18 07:30 Pantoprazole [ProTONIX] 40 mg PO ACBREAKFAST 11/29/18 08:26 Transfuse Red Blood Cells [COMM] Urgent 11/29/18 09:00 Aspirin 81 mg PO DAILY Furosemide [Lasix] 20 mg PO DAILY Losartan [Cozaar] 50 mg PO DAILY Simvastatin [Zocor] 10 mg PO DAILY 11/29/18 09:51 Consult to Physical Therapy [PT Evaluation and Treatment] [CONS] Routine 11/29/18 16:00 Sodium Ferric Gluconate Cmplex [Ferrlecit IV] 250 mg Sodium Chloride 0.9% [ Normal Saline] 100 ml IV ONETIME 11/30/18 05:00 BASIC METABOLIC PANEL,BMP [CHEM] Timed CBC WITH AUTO DIFF [HEME] Timed 11/30/18 05:11 INR,PT,PROTHROMBIN TIME [COAG] AM - Plan Plan:: ASSESSMENT AND PLAN RIGHT LUNG PNEUMONIA-history of symptoms over the past 2-3 weeks, failed outpatient antibiotic therapy. White blood cell count improved from admission, no significant temperature elevations noted thus far -Blood cultures pending -Sputum culture pending -IV fluids for hydration -IV ceftriaxone and levofloxacin,pending culture results HYPOXIA-secondary to pneumonia -Supplemental oxygen as needed -nebulizer therapy as needed ANEMIA-hemoglobin and increased to 7.7 following transfusion. Iron level found to be low and she is received 2 doses of IV iron replacement. Chronic anemia is likely secondary to underlying kidney disease as well as chronic disease -Transfuse 1 additional unit of red blood cells today -Recheck hemoglobin in a.m. CKD STAGE IV-modest improvement in renal function since admission -Closely monitor urine output and renal function during hospital stay LACTIC ACIDOSIS-resolved, likely secondary to dehydration CHRONIC ANTICOAGULATION- status post post mitral valve replacement, INR within desired range today -Warfarin 5 mg by mouth today -Recheck INR in a.m. DEMENTIA -Melatonin 9 mg by mouth daily at bedtime -Haldol when necessary as needed PALLIATIVE CARE-has documented POLST, DNR/DNI MAINTENANCE ISSUES -DVT prophylaxis; current therapy with warfarin should provide adequate DVT prophylaxis -GI prophylaxis; ot indicated -[place] catheter; not indicated -Nutrition; g sodium diet -Nicotine dependence; not required CODE STATUS-DNR/DNI ADMISSION STATUS-patient will be admitted to inpatient status, expect at least a 2 night hospital stay for evaluation and management of problems as outlined above. At the time of this admission I do not reasonably expected evaluation and management of this problem will require more than a 96 hour hospital stay. DISPOSITION-[facility] PRIMARY CARE PROVIDER-Dr. Louise
[2018-11-29] MEDS: Melatonin 3 MG Tab PO SCH (20:56)
[2018-11-30] MEDS: Pantoprazole 40 MG Tab.CR PO SCH (07:02)
[2018-11-30] MEDS: Aspirin 81 MG Tab.Chew PO SCH (08:59)
[2018-11-30] MEDS: Simvastatin 20 MG Tab PO SCH (08:59)
[2018-11-30] MEDS: Furosemide 20 MG Tab PO SCH (08:59)
[2018-11-30] MEDS ORDERED: Warfarin 2.5 MG Tab PO ONE (09:00)
[2018-11-30] MEDS: Losartan 50 MG Tab PO SCH (09:03)
[2018-11-30] MEDS: Metoprolol Tartrate 25 MG Tab PO SCH ×2 (09:04→20:06)
--- NOTE | 2018-11-30 15:44 | PCM.PN ---
- General Info Date of Service: 11/30/18 Subjective Update: Ms. Ferguson has been stable since yesterday, no significant temperature elevation, white blood cell count remains mildly elevated. Has had some ongoing pain with ecchymosis in her right thigh that was present on admission. Also his experienced pain with standing. X-ray was obtained and shows no obvious fracture to my review, radiologic review is pending. She is unable to provide meaningful history concerning symptoms or review of systems because of her underlying dementia. - Patient Data Vitals - Most Recent: Last Vital Signs Temp 97.7 F 11/30/18 12:57 Pulse 64 11/30/18 12:57 Resp 18 11/30/18 12:57 BP 103/43 L 11/30/18 12:57 Pulse Ox 94 L 11/30/18 14:00 Weight - Most Recent: 218 lb 14.387 oz I&O - Last 24 Hours: Intake & Output 11/30/18 11/30/18 11/30/18 06:59 14:59 22:59 Intake Total 1707 603 Balance 1707 603 Lab Results Last 24 Hours: Laboratory Results - last 24 hr 11/28/18 11/30/18 11/30/18 Range/Units 15:00 05:00 05:00 WBC 12.3 H (4.5-11.0) K/uL RBC 2.40 L (3.30-5.50) M/uL Hgb 7.5 L (12.0-15.0) g/dL Hct 23.3 L (36.0-48.0) % MCV 97 (80-98) fL MCH 31 (27-31) pg MCHC 32 (32-36) % Plt Count 315 (150-400) K/uL Neut % (Auto) 75 H (36-66) % Lymph % (Auto) 7 L (24-44) % [place] % (Auto) 18 H (2-6) % Eos % (Auto) 0 L (2-4) % Baso % (Auto) 0 (0-1) % PT 21.2 H (9.5-12.0) sec INR 2.00 H (0.80-1.20) Sodium (140-148) mmol/L Potassium (3.6-5.2) mmol/L Chloride (100-108) mmol/L Carbon Dioxide (21-32) mmol/L Anion Gap (5.0-14.0) mmol/L BUN (7-18) mg/dL Creatinine (0.6-1.0) mg/dL Est Cr Clr Drug Dosing mL/min Estimated GFR (MDRD) (>60) Glucose (74-106) mg/dL Calcium (8.5-10.1) mg/dL Blood Type O POSITIVE Gel Antibody Screen Negative Crossmatch See Detail 11/30/18 Range/Units 05:00 WBC (4.5-11.0) K/uL RBC (3.30-5.50) M/uL Hgb (12.0-15.0) g/dL Hct (36.0-48.0) % MCV (80-98) fL MCH (27-31) pg MCHC (32-36) % Plt Count (150-400) K/uL Neut % (Auto) (36-66) % Lymph % (Auto) (24-44) % [place] % (Auto) (2-6) % Eos % (Auto) (2-4) % Baso % (Auto) (0-1) % PT (9.5-12.0) sec INR (0.80-1.20) Sodium 135 L (140-148) mmol/L Potassium 4.7 (3.6-5.2) mmol/L Chloride 104 (100-108) mmol/L Carbon Dioxide 25 (21-32) mmol/L Anion Gap 10.7 (5.0-14.0) mmol/L BUN 60 H (7-18) mg/dL Creatinine 2.2 H (0.6-1.0) mg/dL Est Cr Clr Drug Dosing 18.93 mL/min Estimated GFR (MDRD) 21 L (>60) Glucose 112 H (74-106) mg/dL Calcium 7.9 L (8.5-10.1) mg/dL Blood Type Gel Antibody Screen Crossmatch Davian Results Last 24 Hours: Microbiology 11/28/18 15:42 Aerobic Blood Culture - Preliminary Blood - Venous NO GROWTH AFTER 1 DAY Anaerobic Blood Culture - Preliminary NO GROWTH AFTER 1 DAY 11/28/18 15:30 Aerobic Blood Culture - Preliminary Blood - Venous - Lab Draw NO GROWTH AFTER 1 DAY Anaerobic Blood Culture - Preliminary NO GROWTH AFTER 1 DAY Med Orders - Current: Current Medications Acetaminophen (Tylenol) 650 mg PO Q4H PRN PRN Reason: Pain (Mild 1-3)/fever Albuterol (Proventil Neb Soln) 2.5 mg NEB Q4H PRN PRN Reason: Shortness Of Breath/wheezing Albuterol/Ipratropium (Duoneb 3.0-0.5 Mg/3 Ml) 3 ml NEB QID PRN PRN Reason: Shortness Of Breath/wheezing Aspirin (Aspirin) 81 mg PO DAILY [facility] Last Admin: 11/30/18 08:59 Dose: 81 mg Furosemide (Lasix) 20 mg PO DAILY [facility] Last Admin: 11/30/18 08:59 Dose: 20 mg Haloperidol Lactate (Haldol) 1 mg IVPUSH Q2H PRN PRN Reason: Agitation Ceftriaxone Sodium 1 gm/ (Sodium Chloride) 50 mls @ 100 mls/hr IV Q24H [facility] Last Admin: 11/29/18 15:23 Dose: 100 mls/hr Levofloxacin/Dextrose 500 mg/ (Premix) 100 mls @ 100 mls/hr IV Q24H [facility] Last Admin: 11/29/18 16:03 Dose: 100 mls/hr Losartan Potassium (Cozaar) 50 mg PO DAILY [facility] Last Admin: 11/30/18 09:03 Dose: 50 mg Melatonin (Melatonin) 9 mg PO BEDTIME [facility] Last Admin: 11/29/18 20:56 Dose: 9 mg Metoprolol Tartrate (Lopressor) 25 mg PO BID [facility] Last Admin: 11/30/18 09:04 Dose: 25 mg Ondansetron HCl (Zofran) 4 mg IV Q4H PRN PRN Reason: Nausea/Vomiting Pantoprazole Sodium (Protonix) 40 mg PO ACBREAKFAST [facility] Last Admin: 11/30/18 07:02 Dose: 40 mg Polyethylene Glycol (Miralax) 17 gm PO DAILY PRN PRN Reason: Constipation Simvastatin (Zocor) 10 mg PO DAILY [facility] Last Admin: 11/30/18 08:59 Dose: 10 mg Sodium Chloride (Saline Flush) 10 ml FLUSH ASDIRECTED PRN PRN Reason: Keep Vein Open Discontinued Medications Phytonadione 1 mg/ Sodium (Chloride) 50.5 mls @ 100 mls/hr IV ONETIME ONE Stop: 11/28/18 16:30 Last Admin: 11/28/18 16:28 Dose: 100 mls/hr Sodium Chloride (Normal Saline) 1,000 mls @ 75 mls/hr IV ASDIRECTED [facility] Last Admin: 11/29/18 07:24 Dose: 75 mls/hr Ferric Sodium Gluconate Complex 250 mg/ Sodium Chloride 120 mls @ 50 mls/hr IV ONETIME ONE Stop: 11/28/18 20:23 Last Admin: 11/28/18 18:20 Dose: Not Given Ferric Sodium Gluconate Complex 250 mg/ Sodium Chloride 120 mls @ 50 mls/hr IV ONETIME ONE Stop: 11/28/18 23:23 Last Admin: 11/28/18 21:12 Dose: 50 mls/hr Ferric Sodium Gluconate Complex 250 mg/ Sodium Chloride 120 mls @ 50 mls/hr IV ONETIME ONE Stop: 11/29/18 18:23 Last Admin: 11/29/18 16:57 Dose: 50 mls/hr Non-Formulary Medication (Potassium Chloride [Klor-Con 10]) 1 tab PO DAILY [facility] Warfarin Sodium (Coumadin) 5 mg PO ONETIME ONE Stop: 11/29/18 15:01 Last Admin: 11/29/18 15:16 Dose: 5 mg Warfarin Sodium (Coumadin) 7.5 mg PO ONETIME ONE Stop: 11/30/18 09:01 Last Admin: 11/30/18 10:02 Dose: 7.5 mg - Exam General: Alert, Cooperative, Mild Distress Lungs: Clear to Auscultation, Normal Respiratory Effort Cardiovascular: Regular Rate, Regular Rhythm, No Murmurs GI/Abdominal Exam: Soft, Non-Tender, No Organomegaly, No Distention Extremities: Other (Ecchymosis/hematoma right thigh, present on admission) - Problem List Review Problem List Initiated/Reviewed/Updated: Yes - My Orders Last 24 Hours: My Active Orders 11/30/18 08:19 Transfuse Red Blood Cells [COMM] Urgent 11/30/18 10:37 Hip Min 2V or 3V Rt [CR] Routine 11/30/18 15:38 Convert IV to Saline Lock [OM.PC] Routine 12/01/18 05:00 BASIC METABOLIC PANEL,BMP [CHEM] Timed CBC WITH AUTO DIFF [HEME] Timed 12/01/18 05:11 INR,PT,PROTHROMBIN TIME [COAG] AM - Plan Plan:: ASSESSMENT AND PLAN RIGHT LUNG PNEUMONIA-history of symptoms over the past 2-3 weeks, failed outpatient antibiotic therapy. White blood cell count remains modestly elevated , no significant temperature elevation. Blood cultures remain negative. -Blood cultures pending -Saline lock IV -IV ceftriaxone and levofloxacin,pending culture results HYPOXIA-secondary to pneumonia -Supplemental oxygen as needed -nebulizer therapy as needed ECCHYMOSIS/HEMATOMA RIGHT THIGH-present on admission, likely source of ongoing blood loss ANEMIA-she likely is experiencing some ongoing bleeding into hematoma right thigh, hemoglobin this morning 7.5 despite transfusion of 1 unit of red blood cells yesterday -Transfuse 1 additional unit of red blood cells today -Recheck hemoglobin in a.m. CKD STAGE IV-renal function has improved from admission, with IV fluids -Closely monitor urine output and renal function during hospital stay LACTIC ACIDOSIS-resolved, likely secondary to dehydration CHRONIC ANTICOAGULATION- status post post mitral valve replacement, INR within desired range today -Warfarin 7.5 mg by mouth today -Recheck INR in a.m. DEMENTIA -Melatonin 9 mg by mouth daily at bedtime -Haldol when necessary as needed PALLIATIVE CARE-has documented POLST, DNR/DNI MAINTENANCE ISSUES -DVT prophylaxis; current therapy with warfarin should provide adequate DVT prophylaxis -GI prophylaxis; ot indicated -[place] catheter; not indicated -Nutrition; g sodium diet -Nicotine dependence; not required CODE STATUS-DNR/DNI ADMISSION STATUS-patient will be admitted to inpatient status, expect at least a 2 night hospital stay for evaluation and management of problems as outlined above. At the time of this admission I do not reasonably expected evaluation and management of this problem will require more than a 96 hour hospital stay. DISPOSITION-anticipate discharge back to long term PRIMARY CARE PROVIDER-Dr. Louise
[2018-11-30] MEDS: cefTRIAXone 1 GM in Sodium Chloride 0.9% 50 ML IV SCH (15:58)
[2018-11-30] MEDS: Levofloxacin/Dextrose 5%-Water 500 MG in Premix Bag 1 BAG IV SCH (15:58)
[2018-11-30] MEDS: Melatonin 3 MG Tab PO SCH (20:06)
[2018-12-01] MEDS: Pantoprazole 40 MG Tab.CR PO SCH (08:02)
[2018-12-01] MEDS: Losartan 50 MG Tab PO SCH (08:03)
[2018-12-01] MEDS: Metoprolol Tartrate 25 MG Tab PO SCH ×2 (08:03→21:36)
[2018-12-01] MEDS: Aspirin 81 MG Tab.Chew PO SCH (08:03)
[2018-12-01] MEDS: Furosemide 20 MG Tab PO SCH (08:03)
[2018-12-01] MEDS: Simvastatin 20 MG Tab PO SCH (08:04)
--- NOTE | 2018-12-01 13:00 | PCM.PN ---
- General Info Date of Service: 12/01/18 Subjective Update: Ms. Ferguson is continued to show evidence of active bleeding into her area of ecchymosis on the right thigh, now extending into the right. There is no history of significant injury, x-ray of the hip shows no obvious fracture in the right hip or pelvis, and neurologic review still pending. Ecchymosis was present on admission but has become progressively worse during her hospital stay. She remains on oral anticoagulation with warfarin because of her underlying prosthetic heart valve. She is unable to provide meaningful history concerning symptoms or review of systems because of her significant dementia - Patient Data Vitals - Most Recent: Last Vital Signs Temp 98.4 F 12/01/18 12:30 Pulse 55 L 12/01/18 12:30 Resp 20 12/01/18 12:30 BP 104/44 L 12/01/18 12:30 Pulse Ox 95 12/01/18 11:46 Weight - Most Recent: 230 lb 3.2 oz I&O - Last 24 Hours: Intake & Output 11/30/18 12/01/18 12/01/18 22:59 06:59 14:59 Intake Total 829 100 Output Total 2 Balance 827 100 Lab Results Last 24 Hours: Laboratory Results - last 24 hr 11/28/18 12/01/18 12/01/18 Range/Units 15:00 05:49 05:49 WBC 9.1 (4.5-11.0) K/uL RBC 2.55 L (3.30-5.50) M/uL Hgb 7.9 L (12.0-15.0) g/dL Hct 24.6 L (36.0-48.0) % MCV 97 (80-98) fL MCH 31 (27-31) pg MCHC 32 (32-36) % Plt Count 299 (150-400) K/uL Neut % (Auto) 71 H (36-66) % Lymph % (Auto) 9 L (24-44) % [place] % (Auto) 19 H (2-6) % Eos % (Auto) 0 L (2-4) % Baso % (Auto) 0 (0-1) % PT 27.9 H (9.5-12.0) sec INR 2.68 H (0.80-1.20) Sodium (140-148) mmol/L Potassium (3.6-5.2) mmol/L Chloride (100-108) mmol/L Carbon Dioxide (21-32) mmol/L Anion Gap (5.0-14.0) mmol/L BUN (7-18) mg/dL Creatinine (0.6-1.0) mg/dL Est Cr Clr Drug Dosing mL/min Estimated GFR (MDRD) (>60) Glucose (74-106) mg/dL Calcium (8.5-10.1) mg/dL Blood Type O POSITIVE Gel Antibody Screen Negative Crossmatch See Detail 12/01/18 Range/Units 05:49 WBC (4.5-11.0) K/uL RBC (3.30-5.50) M/uL Hgb (12.0-15.0) g/dL Hct (36.0-48.0) % MCV (80-98) fL MCH (27-31) pg MCHC (32-36) % Plt Count (150-400) K/uL Neut % (Auto) (36-66) % Lymph % (Auto) (24-44) % [place] % (Auto) (2-6) % Eos % (Auto) (2-4) % Baso % (Auto) (0-1) % PT (9.5-12.0) sec INR (0.80-1.20) Sodium 137 L (140-148) mmol/L Potassium 4.3 (3.6-5.2) mmol/L Chloride 106 (100-108) mmol/L Carbon Dioxide 23 (21-32) mmol/L Anion Gap 12.3 (5.0-14.0) mmol/L BUN 53 H (7-18) mg/dL Creatinine 2.0 H (0.6-1.0) mg/dL Est Cr Clr Drug Dosing 20.83 mL/min Estimated GFR (MDRD) 24 L (>60) Glucose 103 (74-106) mg/dL Calcium 8.1 L (8.5-10.1) mg/dL Blood Type Gel Antibody Screen Crossmatch Davian Results Last 24 Hours: Microbiology 11/28/18 15:42 Aerobic Blood Culture - Preliminary Blood - Venous NO GROWTH AFTER 2 DAYS Anaerobic Blood Culture - Preliminary NO GROWTH AFTER 2 DAYS 11/28/18 15:30 Aerobic Blood Culture - Preliminary Blood - Venous - Lab Draw NO GROWTH AFTER 2 DAYS Anaerobic Blood Culture - Preliminary NO GROWTH AFTER 2 DAYS Med Orders - Current: Current Medications Acetaminophen (Tylenol) 650 mg PO Q4H PRN PRN Reason: Pain (Mild 1-3)/fever Albuterol (Proventil Neb Soln) 2.5 mg NEB Q4H PRN PRN Reason: Shortness Of Breath/wheezing Albuterol/Ipratropium (Duoneb 3.0-0.5 Mg/3 Ml) 3 ml NEB QID PRN PRN Reason: Shortness Of Breath/wheezing Aspirin (Aspirin) 81 mg PO DAILY [facility] Last Admin: 12/01/18 08:03 Dose: 81 mg Furosemide (Lasix) 20 mg PO DAILY [facility] Last Admin: 12/01/18 08:03 Dose: 20 mg Haloperidol Lactate (Haldol) 1 mg IVPUSH Q2H PRN PRN Reason: Agitation Levofloxacin (Levaquin) 500 mg PO Q24H [facility] Losartan Potassium (Cozaar) 50 mg PO DAILY [facility] Last Admin: 12/01/18 08:03 Dose: 50 mg Melatonin (Melatonin) 9 mg PO BEDTIME [facility] Last Admin: 11/30/18 20:06 Dose: 9 mg Metoprolol Tartrate (Lopressor) 25 mg PO BID [facility] Last Admin: 12/01/18 08:03 Dose: 25 mg Ondansetron HCl (Zofran) 4 mg IV Q4H PRN PRN Reason: Nausea/Vomiting Pantoprazole Sodium (Protonix) 40 mg PO ACBREAKFAST [facility] Last Admin: 12/01/18 08:02 Dose: 40 mg Polyethylene Glycol (Miralax) 17 gm PO DAILY PRN PRN Reason: Constipation Last Admin: 11/30/18 20:06 Dose: 17 gm Simvastatin (Zocor) 10 mg PO DAILY [facility] Last Admin: 12/01/18 08:04 Dose: 10 mg Sodium Chloride (Saline Flush) 10 ml FLUSH ASDIRECTED PRN PRN Reason: Keep Vein Open Warfarin Sodium (Coumadin) 2.5 mg PO ONETIME ONE Stop: 12/01/18 12:51 Discontinued Medications Ceftriaxone Sodium 1 gm/ (Sodium Chloride) 50 mls @ 100 mls/hr IV Q24H [facility] Last Admin: 11/30/18 15:58 Dose: 100 mls/hr Levofloxacin/Dextrose 500 mg/ (Premix) 100 mls @ 100 mls/hr IV Q24H [facility] Last Admin: 11/30/18 15:58 Dose: 100 mls/hr Phytonadione 1 mg/ Sodium (Chloride) 50.5 mls @ 100 mls/hr IV ONETIME ONE Stop: 11/28/18 16:30 Last Admin: 11/28/18 16:28 Dose: 100 mls/hr Sodium Chloride (Normal Saline) 1,000 mls @ 75 mls/hr IV ASDIRECTED [facility] Last Admin: 11/29/18 07:24 Dose: 75 mls/hr Ferric Sodium Gluconate Complex 250 mg/ Sodium Chloride 120 mls @ 50 mls/hr IV ONETIME ONE Stop: 11/28/18 20:23 Last Admin: 11/28/18 18:20 Dose: Not Given Ferric Sodium Gluconate Complex 250 mg/ Sodium Chloride 120 mls @ 50 mls/hr IV ONETIME ONE Stop: 11/28/18 23:23 Last Admin: 11/28/18 21:12 Dose: 50 mls/hr Ferric Sodium Gluconate Complex 250 mg/ Sodium Chloride 120 mls @ 50 mls/hr IV ONETIME ONE Stop: 11/29/18 18:23 Last Admin: 11/29/18 16:57 Dose: 50 mls/hr Non-Formulary Medication (Potassium Chloride [Klor-Con 10]) 1 tab PO DAILY [facility] Warfarin Sodium (Coumadin) 5 mg PO ONETIME ONE Stop: 11/29/18 15:01 Last Admin: 11/29/18 15:16 Dose: 5 mg Warfarin Sodium (Coumadin) 7.5 mg PO ONETIME ONE Stop: 11/30/18 09:01 Last Admin: 11/30/18 10:02 Dose: 7.5 mg - Exam Quality Assessment: DVT Prophylaxis General: Alert, Cooperative, Mild Distress. No: Oriented Lungs: Clear to Auscultation, Normal Respiratory Effort Cardiovascular: Regular Rate, Regular Rhythm, No Murmurs GI/Abdominal Exam: Soft, Non-Tender, No Organomegaly, No Distention Extremities: Leg Pain (Large area of ecchymosis right thigh and into the calf, no palpable hematoma) - Problem List Review Problem List Initiated/Reviewed/Updated: Yes - My Orders Last 24 Hours: My Active Orders 11/30/18 15:38 Convert IV to Saline Lock [OM.PC] Routine 12/01/18 08:26 Transfuse Red Blood Cells [COMM] Urgent 12/01/18 12:50 Warfarin [Coumadin] 2.5 mg PO ONETIME ONE 12/01/18 13:00 Lactobacillus Rhamnosus GG [Culturelle] 1 cap PO BID levoFLOXacin [Levaquin] 500 mg PO Q24H 12/02/18 05:00 BASIC METABOLIC PANEL,BMP [CHEM] Timed CBC WITH AUTO DIFF [HEME] Timed INR,PT,PROTHROMBIN TIME [COAG] Timed - Plan Plan:: ASSESSMENT AND PLAN RIGHT LUNG PNEUMONIA-history of symptoms over the past 2-3 weeks, failed outpatient antibiotic therapy. White blood cell count normal, no significant temperature elevation. Blood cultures remain negative. -Blood cultures pending negative thus far -Saline lock IV -Discontinue IV ceftriaxone and levofloxacin,pending culture results -Levofloxacin 500 mg by mouth daily HYPOXIA-secondary to pneumonia -Supplemental oxygen as needed -nebulizer therapy as needed ECCHYMOSIS RIGHT THIGH-present on admission, likely source of ongoing blood loss. Area of ecchymosis appears to be slowly increasing since admission. And has required repeated transfusions to maintain adequate hemoglobin level. No palpable hematoma on examination ANEMIA-she likely is experiencing some ongoing bleeding into hematoma right thigh, hemoglobin this morning 7.9 despite transfusion of 1 unit of red blood cells yesterday -Transfuse 1 additional unit of red blood cells today -Recheck hemoglobin in a.m. CKD STAGE IV-renal function has improved from admission, with IV fluids -Closely monitor urine output and renal function during hospital stay LACTIC ACIDOSIS-resolved, likely secondary to dehydration CHRONIC ANTICOAGULATION- status post post mitral valve replacement, INR within desired range today -Warfarin 2.5 mg by mouth today -Recheck INR in a.m. DEMENTIA -Melatonin 9 mg by mouth daily at bedtime -Haldol when necessary as needed PALLIATIVE CARE-has documented POLST, DNR/DNI MAINTENANCE ISSUES -DVT prophylaxis; current therapy with warfarin should provide adequate DVT prophylaxis -GI prophylaxis; ot indicated -[place] catheter; not indicated -Nutrition; g sodium diet -Nicotine dependence; not required CODE STATUS-DNR/DNI ADMISSION STATUS-patient will be admitted to inpatient status, expect at least a 2 night hospital stay for evaluation and management of problems as outlined above. At the time of this admission I do not reasonably expected evaluation and management of this problem will require more than a 96 hour hospital stay. DISPOSITION-anticipate discharge back to skilled nursing PRIMARY CARE PROVIDER-Dr. Louise
[2018-12-01] MEDS ORDERED: Warfarin 2.5 MG Tab PO ONE (13:30)
[2018-12-01] MEDS: Lactobacillus Rhamnosus GG (Probiotic) Cap PO SCH ×2 (13:52→21:35)
--- NOTE | 2018-12-01 15:39 | CRLCR ---
INDICATION: Pain and ecchymosis after fall. TECHNIQUE: Two views right hip. IMPRESSION: Body habitus somewhat limits image quality. 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 Shallow subarticular sclerosis of the acetabulum. No acute fracture or malalignment. No avascular necrosis change appreciated. Visualized right hemipelvis is intact. Dictated by Pablo Pyror MD @ Dec 01 2018 12:15PM (Electronic Signature) [email or web address]
[2018-12-01] MEDS: Levofloxacin 500 MG Tab PO SCH (15:46)
[2018-12-01] MEDS: Melatonin 3 MG Tab PO SCH (21:35)
[2018-12-02] MEDS: Pantoprazole 40 MG Tab.CR PO SCH (08:42)
[2018-12-02] MEDS: Aspirin 81 MG Tab.Chew PO SCH (08:42)
[2018-12-02] MEDS: Lactobacillus Rhamnosus GG (Probiotic) Cap PO SCH ×2 (08:43→20:14)
[2018-12-02] MEDS: Losartan 50 MG Tab PO SCH (08:44)
[2018-12-02] MEDS: Furosemide 20 MG Tab PO SCH (08:44)
[2018-12-02] MEDS: Simvastatin 20 MG Tab PO SCH (08:45)
[2018-12-02] MEDS: Metoprolol Tartrate 25 MG Tab PO SCH ×2 (08:45→20:15)
--- NOTE | 2018-12-02 12:52 | PCM.PN ---
- General Info Date of Service: 12/02/18 Subjective Update: Ms. Ferguson has been stable over the last 24 hours, hemoglobin has been stable following transfusion yesterday, with no further evidence of active bleeding into her area of ecchymosis on the right thigh. Vital signs have been stable and she has remained afebrile. She is unable to provide meaningful history concerning symptoms or review of systems because of her significant dementia. - Patient Data Vitals - Most Recent: Last Vital Signs Temp 98.1 F 12/02/18 10:00 Pulse 63 12/02/18 10:00 Resp 14 12/02/18 10:00 BP 111/58 L 12/02/18 10:00 Pulse Ox 97 12/02/18 10:00 Weight - Most Recent: 238 lb 3.2 oz I&O - Last 24 Hours: Intake & Output 12/01/18 12/02/18 12/02/18 22:59 06:59 14:59 Intake Total 360 220 536 Balance 360 220 536 Lab Results Last 24 Hours: Laboratory Results - last 24 hr 11/28/18 12/02/18 12/02/18 Range/Units 15:00 04:43 04:43 WBC 8.3 (4.5-11.0) K/uL RBC 2.93 L (3.30-5.50) M/uL Hgb 8.9 L (12.0-15.0) g/dL Hct 28.2 L (36.0-48.0) % MCV 96 (80-98) fL MCH 30 (27-31) pg MCHC 32 (32-36) % Plt Count 302 (150-400) K/uL Neut % (Auto) 66 (36-66) % Lymph % (Auto) 12 L (24-44) % [place] % (Auto) 22 H (2-6) % Eos % (Auto) 1 L (2-4) % Baso % (Auto) 0 (0-1) % PT 30.1 H (9.5-12.0) sec INR 2.91 H (0.80-1.20) Sodium (140-148) mmol/L Potassium (3.6-5.2) mmol/L Chloride (100-108) mmol/L Carbon Dioxide (21-32) mmol/L Anion Gap (5.0-14.0) mmol/L BUN (7-18) mg/dL Creatinine (0.6-1.0) mg/dL Est Cr Clr Drug Dosing mL/min Estimated GFR (MDRD) (>60) Glucose (74-106) mg/dL Calcium (8.5-10.1) mg/dL Crossmatch See Detail 12/02/18 Range/Units 04:43 WBC (4.5-11.0) K/uL RBC (3.30-5.50) M/uL Hgb (12.0-15.0) g/dL Hct (36.0-48.0) % MCV (80-98) fL MCH (27-31) pg MCHC (32-36) % Plt Count (150-400) K/uL Neut % (Auto) (36-66) % Lymph % (Auto) (24-44) % [place] % (Auto) (2-6) % Eos % (Auto) (2-4) % Baso % (Auto) (0-1) % PT (9.5-12.0) sec INR (0.80-1.20) Sodium 138 L (140-148) mmol/L Potassium 4.4 (3.6-5.2) mmol/L Chloride 106 (100-108) mmol/L Carbon Dioxide 25 (21-32) mmol/L Anion Gap 11.4 (5.0-14.0) mmol/L BUN 45 H (7-18) mg/dL Creatinine 1.7 H (0.6-1.0) mg/dL Est Cr Clr Drug Dosing 24.50 mL/min Estimated GFR (MDRD) 29 L (>60) Glucose 98 (74-106) mg/dL Calcium 8.1 L (8.5-10.1) mg/dL Crossmatch Davian Results Last 24 Hours: Microbiology 11/28/18 15:30 Aerobic Blood Culture - Preliminary Blood - Venous - Lab Draw NO GROWTH AFTER 3 DAYS Anaerobic Blood Culture - Preliminary NO GROWTH AFTER 3 DAYS 11/28/18 15:42 Aerobic Blood Culture - Preliminary Blood - Venous NO GROWTH AFTER 3 DAYS Anaerobic Blood Culture - Preliminary NO GROWTH AFTER 3 DAYS Med Orders - Current: Current Medications Acetaminophen (Tylenol) 650 mg PO Q4H PRN PRN Reason: Pain (Mild 1-3)/fever Albuterol (Proventil Neb Soln) 2.5 mg NEB Q4H PRN PRN Reason: Shortness Of Breath/wheezing Albuterol/Ipratropium (Duoneb 3.0-0.5 Mg/3 Ml) 3 ml NEB QID PRN PRN Reason: Shortness Of Breath/wheezing Aspirin (Aspirin) 81 mg PO DAILY [facility] Last Admin: 12/02/18 08:42 Dose: 81 mg Furosemide (Lasix) 20 mg PO DAILY [facility] Last Admin: 12/02/18 08:44 Dose: 20 mg Haloperidol Lactate (Haldol) 1 mg IVPUSH Q2H PRN PRN Reason: Agitation Lactobacillus Rhamnosus (Culturelle) 1 cap PO BID [facility] Last Admin: 12/02/18 08:43 Dose: 1 cap Levofloxacin (Levaquin) 500 mg PO Q24H [facility] Last Admin: 12/01/18 15:46 Dose: 500 mg Losartan Potassium (Cozaar) 50 mg PO DAILY [facility] Last Admin: 12/02/18 08:44 Dose: 50 mg Melatonin (Melatonin) 9 mg PO BEDTIME [facility] Last Admin: 12/01/18 21:35 Dose: 9 mg Metoprolol Tartrate (Lopressor) 25 mg PO BID [facility] Last Admin: 12/02/18 08:45 Dose: 25 mg Ondansetron HCl (Zofran) 4 mg IV Q4H PRN PRN Reason: Nausea/Vomiting Pantoprazole Sodium (Protonix) 40 mg PO ACBREAKFAST [facility] Last Admin: 12/02/18 08:42 Dose: 40 mg Polyethylene Glycol (Miralax) 17 gm PO DAILY PRN PRN Reason: Constipation Last Admin: 11/30/18 20:06 Dose: 17 gm Simvastatin (Zocor) 10 mg PO DAILY [facility] Last Admin: 12/02/18 08:45 Dose: 10 mg Sodium Chloride (Saline Flush) 10 ml FLUSH ASDIRECTED PRN PRN Reason: Keep Vein Open Discontinued Medications Ceftriaxone Sodium 1 gm/ (Sodium Chloride) 50 mls @ 100 mls/hr IV Q24H [facility] Last Admin: 11/30/18 15:58 Dose: 100 mls/hr Levofloxacin/Dextrose 500 mg/ (Premix) 100 mls @ 100 mls/hr IV Q24H [facility] Last Admin: 11/30/18 15:58 Dose: 100 mls/hr Phytonadione 1 mg/ Sodium (Chloride) 50.5 mls @ 100 mls/hr IV ONETIME ONE Stop: 11/28/18 16:30 Last Admin: 11/28/18 16:28 Dose: 100 mls/hr Sodium Chloride (Normal Saline) 1,000 mls @ 75 mls/hr IV ASDIRECTED [facility] Last Admin: 11/29/18 07:24 Dose: 75 mls/hr Ferric Sodium Gluconate Complex 250 mg/ Sodium Chloride 120 mls @ 50 mls/hr IV ONETIME ONE Stop: 11/28/18 20:23 Last Admin: 11/28/18 18:20 Dose: Not Given Ferric Sodium Gluconate Complex 250 mg/ Sodium Chloride 120 mls @ 50 mls/hr IV ONETIME ONE Stop: 11/28/18 23:23 Last Admin: 11/28/18 21:12 Dose: 50 mls/hr Ferric Sodium Gluconate Complex 250 mg/ Sodium Chloride 120 mls @ 50 mls/hr IV ONETIME ONE Stop: 11/29/18 18:23 Last Admin: 11/29/18 16:57 Dose: 50 mls/hr Non-Formulary Medication (Potassium Chloride [Klor-Con 10]) 1 tab PO DAILY [facility] Warfarin Sodium (Coumadin) 5 mg PO ONETIME ONE Stop: 11/29/18 15:01 Last Admin: 11/29/18 15:16 Dose: 5 mg Warfarin Sodium (Coumadin) 7.5 mg PO ONETIME ONE Stop: 11/30/18 09:01 Last Admin: 11/30/18 10:02 Dose: 7.5 mg Warfarin Sodium (Coumadin) 2.5 mg PO ONETIME ONE Stop: 12/01/18 13:31 Last Admin: 12/01/18 13:52 Dose: 2.5 mg - Exam General: Alert, Cooperative, No Acute Distress. No: Oriented Lungs: Clear to Auscultation, Normal Respiratory Effort Cardiovascular: Regular Rate, No Murmurs, Irregular Rhythm GI/Abdominal Exam: Soft, Non-Tender, No Organomegaly, No Distention - Problem List Review Problem List Initiated/Reviewed/Updated: Yes - My Orders Last 24 Hours: My Active Orders 12/01/18 13:00 Lactobacillus Rhamnosus GG [Culturelle] 1 cap PO BID 12/01/18 16:30 levoFLOXacin [Levaquin] 500 mg PO Q24H 12/02/18 12:46 Warfarin [Coumadin] 2.5 mg PO ONETIME ONE 12/03/18 05:00 BASIC METABOLIC PANEL,BMP [CHEM] Timed CBC WITH AUTO DIFF [HEME] Timed 12/03/18 05:11 INR,PT,PROTHROMBIN TIME [COAG] AM - Plan Plan:: ASSESSMENT AND PLAN RIGHT LUNG PNEUMONIA-history of symptoms over the past 2-3 weeks, failed outpatient antibiotic therapy. White blood cell count normal, no significant temperature elevation. Blood cultures remain negative. -Blood cultures pending, negative thus far -Saline lock IV -Levofloxacin 500 mg by mouth daily HYPOXIA-secondary to pneumonia -Supplemental oxygen as needed -nebulizer therapy as needed ECCHYMOSIS RIGHT THIGH-present on admission, likely source of ongoing blood loss. Hemoglobin stable over the last 24 hours with no further evidence of active bleeding ANEMIA-hemoglobin stable following transfusion at 8.9 -Recheck hemoglobin in a.m. CKD STAGE IV-renal function has improved from admission -Closely monitor urine output and renal function during hospital stay LACTIC ACIDOSIS-resolved, likely secondary to dehydration CHRONIC ANTICOAGULATION- status post post mitral valve replacement, INR within desired range today -Warfarin 2.5 mg by mouth today -Recheck INR in a.m. DEMENTIA -Melatonin 9 mg by mouth daily at bedtime -Haldol when necessary as needed PALLIATIVE CARE-has documented POLST, DNR/DNI MAINTENANCE ISSUES -DVT prophylaxis; current therapy with warfarin should provide adequate DVT prophylaxis -GI prophylaxis; ot indicated -[place] catheter; not indicated -Nutrition; g sodium diet -Nicotine dependence; not required CODE STATUS-DNR/DNI ADMISSION STATUS-patient will be admitted to inpatient status, expect at least a 2 night hospital stay for evaluation and management of problems as outlined above. At the time of this admission I do not reasonably expected evaluation and management of this problem will require more than a 96 hour hospital stay. DISPOSITION-anticipate discharge back to assisted PRIMARY CARE PROVIDER-Dr. Louise
[2018-12-02] MEDS ORDERED: Warfarin 2.5 MG Tab PO ONE (13:30)
[2018-12-02] MEDS: Levofloxacin 500 MG Tab PO SCH (16:16)
[2018-12-02] MEDS: Melatonin 3 MG Tab PO SCH (20:15)
[2018-12-03] MEDS: Furosemide 20 MG Tab PO SCH (08:16)
[2018-12-03] MEDS: Pantoprazole 40 MG Tab.CR PO SCH (08:16)
[2018-12-03] MEDS: Simvastatin 20 MG Tab PO SCH (08:16)
[2018-12-03] MEDS: Metoprolol Tartrate 25 MG Tab PO SCH ×2 (08:16→21:50)
[2018-12-03] MEDS: Lactobacillus Rhamnosus GG (Probiotic) Cap PO SCH ×2 (08:16→21:44)
[2018-12-03] MEDS: Aspirin 81 MG Tab.Chew PO SCH (08:17)
[2018-12-03] MEDS: Losartan 50 MG Tab PO SCH (08:18)
--- NOTE | 2018-12-03 11:32 | PCM.PN ---
- General Info Date of Service: 12/03/18 Subjective Update: Ms. Ferguson has been stable since yesterday with no further evidence of active bleeding. She reports less pain in the right leg but still is unable to ambulate. She is unable to provide other meaningful history concerning symptoms or review of systems because of underlying dementia. - Patient Data Vitals - Most Recent: Last Vital Signs Temp 98.2 F 12/03/18 11:00 Pulse 92 12/03/18 11:00 Resp 16 12/03/18 11:00 BP 102/56 L 12/03/18 11:00 Pulse Ox 96 12/03/18 11:00 Weight - Most Recent: 233 lb 8 oz I&O - Last 24 Hours: Intake & Output 12/02/18 12/03/18 12/03/18 22:59 06:59 14:59 Intake Total 636 240 Balance 636 240 Lab Results Last 24 Hours: Laboratory Results - last 24 hr 12/03/18 12/03/18 12/03/18 Range/Units 05:19 05:19 05:19 WBC 8.4 (4.5-11.0) K/uL RBC 3.01 L (3.30-5.50) M/uL Hgb 9.3 L (12.0-15.0) g/dL Hct 29.1 L (36.0-48.0) % MCV 97 (80-98) fL MCH 31 (27-31) pg MCHC 32 (32-36) % Plt Count 326 (150-400) K/uL Add Manual Diff Yes Neutrophils % (Manual) 62 (36-66) % Band Neutrophils % 1 L (5-11) % Lymphocytes % (Manual) 13 L (24-44) % Monocytes % (Manual) 21 H (2-6) % Eosinophils % (Manual) 3 (2-4) % PT 36.1 H (9.5-12.0) sec INR 3.52 H (0.80-1.20) Sodium 136 L (140-148) mmol/L Potassium 4.2 (3.6-5.2) mmol/L Chloride 104 (100-108) mmol/L Carbon Dioxide 25 (21-32) mmol/L Anion Gap 11.2 (5.0-14.0) mmol/L BUN 37 H (7-18) mg/dL Creatinine 1.6 H (0.6-1.0) mg/dL Est Cr Clr Drug Dosing 26.03 mL/min Estimated GFR (MDRD) 31 L (>60) Glucose 104 (74-106) mg/dL Calcium 8.3 L (8.5-10.1) mg/dL Davian Results Last 24 Hours: Microbiology 11/28/18 15:42 Aerobic Blood Culture - Preliminary Blood - Venous NO GROWTH AFTER 4 DAYS Anaerobic Blood Culture - Preliminary NO GROWTH AFTER 4 DAYS 11/28/18 15:30 Aerobic Blood Culture - Preliminary Blood - Venous - Lab Draw NO GROWTH AFTER 4 DAYS Anaerobic Blood Culture - Preliminary NO GROWTH AFTER 4 DAYS Med Orders - Current: Current Medications Acetaminophen (Tylenol) 650 mg PO Q4H PRN PRN Reason: Pain (Mild 1-3)/fever Albuterol (Proventil Neb Soln) 2.5 mg NEB Q4H PRN PRN Reason: Shortness Of Breath/wheezing Albuterol/Ipratropium (Duoneb 3.0-0.5 Mg/3 Ml) 3 ml NEB QID PRN PRN Reason: Shortness Of Breath/wheezing Aspirin (Aspirin) 81 mg PO DAILY [facility] Last Admin: 12/03/18 08:17 Dose: 81 mg Furosemide (Lasix) 20 mg PO DAILY [facility] Last Admin: 12/03/18 08:16 Dose: 20 mg Haloperidol Lactate (Haldol) 1 mg IVPUSH Q2H PRN PRN Reason: Agitation Lactobacillus Rhamnosus (Culturelle) 1 cap PO BID [facility] Last Admin: 12/03/18 08:16 Dose: 1 cap Levofloxacin (Levaquin) 250 mg PO ONETIME ONE Stop: 12/03/18 16:31 Losartan Potassium (Cozaar) 50 mg PO DAILY [facility] Last Admin: 12/03/18 08:18 Dose: 50 mg Melatonin (Melatonin) 9 mg PO BEDTIME [facility] Last Admin: 12/02/18 20:15 Dose: 9 mg Metoprolol Tartrate (Lopressor) 25 mg PO BID [facility] Last Admin: 12/03/18 08:16 Dose: 25 mg Ondansetron HCl (Zofran) 4 mg IV Q4H PRN PRN Reason: Nausea/Vomiting Pantoprazole Sodium (Protonix) 40 mg PO ACBREAKFAST [facility] Last Admin: 12/03/18 08:16 Dose: 40 mg Polyethylene Glycol (Miralax) 17 gm PO DAILY PRN PRN Reason: Constipation Last Admin: 11/30/18 20:06 Dose: 17 gm Simvastatin (Zocor) 10 mg PO DAILY [facility] Last Admin: 12/03/18 08:16 Dose: 10 mg Sodium Chloride (Saline Flush) 10 ml FLUSH ASDIRECTED PRN PRN Reason: Keep Vein Open Discontinued Medications Ceftriaxone Sodium 1 gm/ (Sodium Chloride) 50 mls @ 100 mls/hr IV Q24H [facility] Last Admin: 11/30/18 15:58 Dose: 100 mls/hr Levofloxacin/Dextrose 500 mg/ (Premix) 100 mls @ 100 mls/hr IV Q24H [facility] Last Admin: 11/30/18 15:58 Dose: 100 mls/hr Phytonadione 1 mg/ Sodium (Chloride) 50.5 mls @ 100 mls/hr IV ONETIME ONE Stop: 11/28/18 16:30 Last Admin: 11/28/18 16:28 Dose: 100 mls/hr Sodium Chloride (Normal Saline) 1,000 mls @ 75 mls/hr IV ASDIRECTED [facility] Last Admin: 11/29/18 07:24 Dose: 75 mls/hr Ferric Sodium Gluconate Complex 250 mg/ Sodium Chloride 120 mls @ 50 mls/hr IV ONETIME ONE Stop: 11/28/18 20:23 Last Admin: 11/28/18 18:20 Dose: Not Given Ferric Sodium Gluconate Complex 250 mg/ Sodium Chloride 120 mls @ 50 mls/hr IV ONETIME ONE Stop: 11/28/18 23:23 Last Admin: 11/28/18 21:12 Dose: 50 mls/hr Ferric Sodium Gluconate Complex 250 mg/ Sodium Chloride 120 mls @ 50 mls/hr IV ONETIME ONE Stop: 11/29/18 18:23 Last Admin: 11/29/18 16:57 Dose: 50 mls/hr Levofloxacin (Levaquin) 500 mg PO Q24H [facility] Last Admin: 12/02/18 16:16 Dose: 500 mg Non-Formulary Medication (Potassium Chloride [Klor-Con 10]) 1 tab PO DAILY [facility] Warfarin Sodium (Coumadin) 5 mg PO ONETIME ONE Stop: 11/29/18 15:01 Last Admin: 11/29/18 15:16 Dose: 5 mg Warfarin Sodium (Coumadin) 7.5 mg PO ONETIME ONE Stop: 11/30/18 09:01 Last Admin: 11/30/18 10:02 Dose: 7.5 mg Warfarin Sodium (Coumadin) 2.5 mg PO ONETIME ONE Stop: 12/01/18 13:31 Last Admin: 12/01/18 13:52 Dose: 2.5 mg Warfarin Sodium (Coumadin) 2.5 mg PO ONETIME ONE Stop: 12/02/18 13:31 Last Admin: 12/02/18 14:23 Dose: 2.5 mg - Exam Quality Assessment: DVT Prophylaxis General: Alert, Cooperative, No Acute Distress. No: Oriented Lungs: Clear to Auscultation, Normal Respiratory Effort Cardiovascular: Regular Rate, Regular Rhythm, No Murmurs GI/Abdominal Exam: Soft, Non-Tender, No Organomegaly, No Distention Extremities: Non-Tender, Other (Large ecchymosis right thigh) - Problem List Review Problem List Initiated/Reviewed/Updated: Yes - My Orders Last 24 Hours: My Active Orders 12/03/18 16:30 levoFLOXacin [Levaquin] 250 mg PO ONETIME ONE 12/04/18 05:00 INR,PT,PROTHROMBIN TIME [COAG] Timed 12/04/18 05:11 HGB [HEMOGLOBIN] [HEME] AM - Plan Plan:: ASSESSMENT AND PLAN RIGHT LUNG PNEUMONIA-history of symptoms over the past 2-3 weeks, failed outpatient antibiotic therapy. White blood cell count normal, no significant temperature elevation. Blood cultures remain negative. -Blood cultures pending, negative thus far -Saline lock IV -Levofloxacin 250 mg by mouth today, antibiotic therapy will be discontinued after today's doses she will have completed a full course of antibiotic therapy HYPOXIA-resolved -Supplemental oxygen as needed -nebulizer therapy as needed ECCHYMOSIS RIGHT THIGH-present on admission, likely source of ongoing blood loss. Hemoglobin stable over the last 48 hours with no further evidence of active bleeding ANEMIA-hemoglobin stable -Recheck hemoglobin in a.m. CKD STAGE IV-renal function has improved from admission -Closely monitor urine output and renal function during hospital stay LACTIC ACIDOSIS-resolved, likely secondary to dehydration CHRONIC ANTICOAGULATION- status post post mitral valve replacement, INR supratherapeutic today -Hold warfarin today -Recheck INR in a.m. DEMENTIA -Melatonin 9 mg by mouth daily at bedtime -Haldol when necessary as needed PALLIATIVE CARE-has documented POLST, DNR/DNI MAINTENANCE ISSUES -DVT prophylaxis; current therapy with warfarin should provide adequate DVT prophylaxis -GI prophylaxis; ot indicated -[place] catheter; not indicated -Nutrition; g sodium diet -Nicotine dependence; not required CODE STATUS-DNR/DNI ADMISSION STATUS-patient will be admitted to inpatient status, expect at least a 2 night hospital stay for evaluation and management of problems as outlined above. At the time of this admission I do not reasonably expected evaluation and management of this problem will require more than a 96 hour hospital stay. DISPOSITION-anticipate discharge back to detention PRIMARY CARE PROVIDER-Dr. Louise
[2018-12-03] MEDS ORDERED: Levofloxacin 250 MG Tab PO ONE (16:30)
[2018-12-03] MEDS: Melatonin 3 MG Tab PO SCH (21:44)
[2018-12-04] MEDS: Lactobacillus Rhamnosus GG (Probiotic) Cap PO SCH (08:52)
[2018-12-04] MEDS: Losartan 50 MG Tab PO SCH (08:52)
[2018-12-04] MEDS: Aspirin 81 MG Tab.Chew PO SCH (08:52)
[2018-12-04] MEDS: Simvastatin 20 MG Tab PO SCH (08:52)
[2018-12-04] MEDS: Pantoprazole 40 MG Tab.CR PO SCH (08:53)
[2018-12-04] MEDS: Furosemide 20 MG Tab PO SCH (08:53)
[2018-12-04 10:16] VITALS: BP 118/47
[2018-12-04] MEDS: Metoprolol Tartrate 25 MG Tab PO SCH (11:37)
--- NOTE | 2018-12-04 13:11 | PCM.DCSUM1 ---
Discharge Summary - Hospital Course Brief History: 83-year-old female with a history of Alzheimer's dementia without behavioral disturbance, stage III chronic kidney disease, prosthetic mitral valve and recent treatment for pneumonia who presented with weakness, fatigue and hypoxia. She was admitted for management of right lower lobe pneumonia that failed outpatient therapy as well as acute on chronic anemia. Diagnosis: Stroke: No - Discharge Data Discharge Date: 12/04/18 Discharge Disposition: DC/Tfer to SNF 03 Condition: Fair - Discharge Diagnosis/Problem(s) (1) Right lower lobe pneumonia SNOMED Code(s): 808579614 ICD Code: J18.1 - LOBAR PNEUMONIA, UNSPECIFIED ORGANISM Status: Acute Current Visit: Yes Qualifiers: Pneumonia type: due to unspecified organism Qualified Code(s): J18.1 - Lobar pneumonia, unspecified organism (2) Hematoma of right thigh SNOMED Code(s): 536733255 ICD Code: S70.11XA - CONTUSION OF RIGHT THIGH, INITIAL ENCOUNTER Status: Acute Current Visit: Yes Qualifiers: Encounter type: initial encounter Qualified Code(s): S70.11XA - Contusion of right thigh, initial encounter (3) Blood loss anemia SNOMED Code(s): 641239567 ICD Code: D50.0 - IRON DEFICIENCY ANEMIA SECONDARY TO BLOOD LOSS (CHRONIC) Status: Acute Current Visit: Yes (4) Supratherapeutic INR SNOMED Code(s): 767130096 ICD Code: R79.1 - ABNORMAL COAGULATION PROFILE Status: Acute Current Visit: Yes (5) CKD (chronic kidney disease) stage 3, GFR 30-59 ml/min SNOMED Code(s): 947079662 ICD Code: N18.3 - CHRONIC KIDNEY DISEASE, STAGE 3 (MODERATE) Status: Chronic Current Visit: No (6) History of mitral valve replacement with mechanical valve SNOMED Code(s): 07042612113902, 38433713724505 ICD Code: Z95.2 - PRESENCE OF PROSTHETIC HEART VALVE Status: Chronic Current Visit: No - Patient Summary/Data Consults: Consultations 11/29/18 09:51 Consult to Physical Therapy [PT Evaluation and Treatment] [CONS] Routine Please Evaluate and Treat. PT Reason for Consult: weakness This query below is only for informational purposes and is not editable. Admission Diagnosis/Problem: Pneumonia Hospital Course: Yadi presented to the emergency room with weakness, fatigue and hypoxia. Initially she presented to the clinic and was sent to the emergency room for further evaluation. Workup in the emergency room revealed evidence for right lower lobe pneumonia with hypoxic respiratory failure as well as mild lactic acidosis and a hemoglobin of 7.5. her INR was elevated at more than 7.She also had acute on chronic renal insufficiency with a GFR in the stage V range. She was admitted to the hospital for management of the pneumonia as well as workup and treatment of the anemia. she received 1 mg of IV vitamin K to help reduce the supratherapeutic INR. The mild lactic acidosis was thought to be related to intravascular volume depletion rather than sepsis with no other vital signs to support sepsis. She received levofloxacin for management of the pneumonia. She did receive 1 unit of blood via transfusion at the time of admission. The next day her hemoglobin had remained essentially stable and she received a second unit. The third day her hemoglobin was still below 8 and she received a third unit of blood via transfusion. The source of blood loss was thought to be her right thigh with a large ecchymosis that progressed over the course of the first several days of the hospital stay. Imaging of the right thigh was unremarkable for fracture. There is no evidence for injury and this was thought to be a spontaneous bleed in the setting of a supratherapeutic INR. her INR did improve to the therapeutic range with the use of vitamin K on the day of admission. Throughout the course of the hospital stay we were able to wean her off supplemental oxygen. Her INR did remain the therapeutic for much of the hospital stay but the last 2 days of the hospital stay and has risen to slightly supratherapeutic. She has not received warfarin in the last 2 days. She has completed adequate antibiotics for her pneumonia. She has not had any fevers. Her hemoglobin has been stable around 9 for the past 3 days. Pain has been adequately controlled in the right thigh. Kidney function has improved to the point that she now has stage III kidney disease which is her baseline. Patient has been having some difficulty with ambulation because of right thigh pain. I do recommend ongoing physical and occupational therapy to help improve her ambulation. We did discuss the possibility of hospice with her daughter. At this point they would like to see if she is able to improve her ambulation some but if she is not able to or if she has further decline transition to hospice cares would be appropriate in their mind. Patient is stable for discharge at this time. She has completed antibiotics for her pneumonia. Her hemoglobin has been stable with her blood loss anemia and kidney function has returned to baseline. There have been no behavior issues with her dementia. - Patient Instructions Diet: Low Sodium, Mechanical Soft Diet, Other: nectar thick liquids Activity: As Tolerated Showering/Bathing: May Shower Notify Provider of: Fever, Increased Pain, Nausea and/or Vomiting Other/Special Instructions: 1. You were in the hospital for management of a right lower lobe pneumonia. Your condition has been improving with antibiotic therapy and you have completed sufficient antibiotics. No additional treatment for the pneumonia is recommended at this time. During the hospital stay you had an elevated INR level. You did receive a small dose of vitamin K to help lower your INR to a therapeutic level. Because of the elevated INR you had bleeding into your right thigh. The bleeding was significant enough that you required 3 separate blood transfusions. The bleeding has stopped at this time and your hemoglobin has been stable. No additional treatment is required but there may be pain for several weeks as the body reabsorbs the blood that has leaked into your thigh. 2. Your INR is still elevated at 3.9 today. I would recommend that you have this rechecked tomorrow. Further instructions can be received from the Coumadin clinic at that time. You should hold your warfarin today, 12/04, and reassess tomorrow based on Coumadin clinic recommendations. 3. Referral to PT and OT for strengthening. Weightbearing as tolerated on the right leg with the hematoma. 4. Code status - DNR/DNI. 5. Seek medical attention if you have fever greater than 101, severe shortness of breath or if you develop chest pain. - Discharge Plan *PRESCRIPTION DRUG MONITORING PROGRAM REVIEWED*: Not Applicable *COPY OF PRESCRIPTION DRUG MONITORING REPORT IN PATIENT [place]: Not Applicable Home Medications: Home Meds Metoprolol Tartrate [Lopressor] 25 mg PO BID 05/03/14 [History] Simvastatin 10 mg PO BEDTIME 05/03/14 [History] Warfarin Sodium 5 mg PO ASDIRECTED 05/03/14 [History] Multivitamin [Multi-Vitamin Daily] 1 tab PO DAILY 05/17/14 [History] Cyanocobalamin (Vitamin B-12) [B-12] 1,000 mcg PO DAILY 04/07/17 [History] Aspirin [Deepstep Aspirin] 1 tab PO DAILY 08/09/18 [History] Cholecalciferol (Vitamin D3) [Delta D3] 800 unit PO DAILY 08/09/18 [History] Dextrin [Fiber] 1 tsp PO DAILY 08/09/18 [History] Losartan Potassium 1 tab PO DAILY 08/09/18 [History] Omeprazole 1 tab PO DAILY 08/09/18 [History] Potassium Chloride [Klor-Con 10] 1 tab PO DAILY 08/09/18 [History] Furosemide [Lasix] 80 mg PO DAILY 11/28/18 [History] Ipratropium/Albuterol Sulfate [Iprat-Albut 0.5-3(2.5) MG/3 ML] 3 ml IH Q6HR [History] Warfarin Sodium [Coumadin] 7.5 mg PO ASDIRECTED 11/28/18 [History] Oxygen Therapy Mode: Room Air Patient Handouts: Community-Acquired Pneumonia, Adult, [id number] Referrals: Fady Louise MD [Primary Care Provider] - (as needed ) - Discharge Summary/Plan Comment DC Time >30 min.: Yes (40 - complicated assisted discharge) - Patient Data Vitals - Most Recent: Last Vital Signs Temp 36.4 C 12/04/18 10:15 Pulse 53 L 12/04/18 11:37 Resp 17 12/04/18 10:15 BP 118/47 L 12/04/18 11:37 Pulse Ox 96 12/04/18 10:15 Weight - Most Recent: 104.78 kg I&O - Last 24 hours: Intake & Output 12/03/18 12/04/18 12/04/18 22:59 06:59 14:59 Intake Total 440 240 360 Balance 440 240 360 Lab Results - Last 24 hrs: Laboratory Results - last 24 hr 12/04/18 12/04/18 Range/Units 05:54 05:54 Hgb 9.5 L (12.0-15.0) g/dL PT 40.5 H (9.5-12.0) sec INR 3.98 H (0.80-1.20) CORWIN Results - Last 24 hrs: Microbiology 11/28/18 15:42 Aerobic Blood Culture - Final Blood - Venous NO GROWTH AFTER 5 DAYS Anaerobic Blood Culture - Final NO GROWTH AFTER 5 DAYS 11/28/18 15:30 Aerobic Blood Culture - Final Blood - Venous - Lab Draw NO GROWTH AFTER 5 DAYS Anaerobic Blood Culture - Final NO GROWTH AFTER 5 DAYS Med Orders - Current: Current Medications Acetaminophen (Tylenol) 650 mg PO Q4H PRN PRN Reason: Pain (Mild 1-3)/fever Albuterol (Proventil Neb Soln) 2.5 mg NEB Q4H PRN PRN Reason: Shortness Of Breath/wheezing Albuterol/Ipratropium (Duoneb 3.0-0.5 Mg/3 Ml) 3 ml NEB QID PRN PRN Reason: Shortness Of Breath/wheezing Aspirin (Aspirin) 81 mg PO DAILY [facility] Last Admin: 12/04/18 08:52 Dose: 81 mg Furosemide (Lasix) 20 mg PO DAILY [facility] Last Admin: 12/04/18 08:53 Dose: 20 mg Haloperidol Lactate (Haldol) 1 mg IVPUSH Q2H PRN PRN Reason: Agitation Lactobacillus Rhamnosus (Culturelle) 1 cap PO BID [facility] Last Admin: 12/04/18 08:52 Dose: 1 cap Losartan Potassium (Cozaar) 50 mg PO DAILY [facility] Last Admin: 12/04/18 08:52 Dose: 50 mg Melatonin (Melatonin) 9 mg PO BEDTIME [facility] Last Admin: 12/03/18 21:44 Dose: 9 mg Metoprolol Tartrate (Lopressor) 25 mg PO BID [facility] Last Admin: 12/04/18 11:37 Dose: Not Given Ondansetron HCl (Zofran) 4 mg IV Q4H PRN PRN Reason: Nausea/Vomiting Pantoprazole Sodium (Protonix) 40 mg PO ACBREAKFAST [facility] Last Admin: 12/04/18 08:53 Dose: 40 mg Polyethylene Glycol (Miralax) 17 gm PO DAILY PRN PRN Reason: Constipation Last Admin: 11/30/18 20:06 Dose: 17 gm Simvastatin (Zocor) 10 mg PO DAILY [facility] Last Admin: 12/04/18 08:52 Dose: 10 mg Sodium Chloride (Saline Flush) 10 ml FLUSH ASDIRECTED PRN PRN Reason: Keep Vein Open Discontinued Medications Ceftriaxone Sodium 1 gm/ (Sodium Chloride) 50 mls @ 100 mls/hr IV Q24H [facility] Last Admin: 11/30/18 15:58 Dose: 100 mls/hr Levofloxacin/Dextrose 500 mg/ (Premix) 100 mls @ 100 mls/hr IV Q24H [facility] Last Admin: 11/30/18 15:58 Dose: 100 mls/hr Phytonadione 1 mg/ Sodium (Chloride) 50.5 mls @ 100 mls/hr IV ONETIME ONE Stop: 11/28/18 16:30 Last Admin: 11/28/18 16:28 Dose: 100 mls/hr Sodium Chloride (Normal Saline) 1,000 mls @ 75 mls/hr IV ASDIRECTED [facility] Last Admin: 11/29/18 07:24 Dose: 75 mls/hr Ferric Sodium Gluconate Complex 250 mg/ Sodium Chloride 120 mls @ 50 mls/hr IV ONETIME ONE Stop: 11/28/18 20:23 Last Admin: 11/28/18 18:20 Dose: Not Given Ferric Sodium Gluconate Complex 250 mg/ Sodium Chloride 120 mls @ 50 mls/hr IV ONETIME ONE Stop: 11/28/18 23:23 Last Admin: 11/28/18 21:12 Dose: 50 mls/hr Ferric Sodium Gluconate Complex 250 mg/ Sodium Chloride 120 mls @ 50 mls/hr IV ONETIME ONE Stop: 11/29/18 18:23 Last Admin: 11/29/18 16:57 Dose: 50 mls/hr Levofloxacin (Levaquin) 500 mg PO Q24H [facility] Last Admin: 12/02/18 16:16 Dose: 500 mg Levofloxacin (Levaquin) 250 mg PO ONETIME ONE Stop: 12/03/18 16:31 Last Admin: 12/03/18 16:21 Dose: 250 mg Non-Formulary Medication (Potassium Chloride [Klor-Con 10]) 1 tab PO DAILY [facility] Warfarin Sodium (Coumadin) 5 mg PO ONETIME ONE Stop: 11/29/18 15:01 Last Admin: 11/29/18 15:16 Dose: 5 mg Warfarin Sodium (Coumadin) 7.5 mg PO ONETIME ONE Stop: 11/30/18 09:01 Last Admin: 11/30/18 10:02 Dose: 7.5 mg Warfarin Sodium (Coumadin) 2.5 mg PO ONETIME ONE Stop: 12/01/18 13:31 Last Admin: 12/01/18 13:52 Dose: 2.5 mg Warfarin Sodium (Coumadin) 2.5 mg PO ONETIME ONE Stop: 12/02/18 13:31 Last Admin: 12/02/18 14:23 Dose: 2.5 mg - Exam Quality Assessment: Denies: Supplemental Oxygen General: Reports: Alert, No Acute Distress Lungs: Reports: Normal Respiratory Effort GI/Abdominal Exam: Soft, No Distention Extremities: Pedal Edema Skin: Reports: Warm, Dry, Ecchymosis (large right thigh bruising ) Psy/Mental Status: Reports: Alert, Normal Affect *Q Meaningful Use (DIS) - VTE *Q VTE Pharmacological Contraindications *Q: High INR Value
== END 2018-12-04 14:09 | DRG 193 ==
LOC: JP.ED 14:38 → JP.MS 15:30
PROVIDERS: ADMIT Hospitalist; ATTEND Internal Medicine
PROC: 30233N1 Transfusion of Nonautologous Red Blood Cells into Peripheral Vein, Percutaneous Approach (ICD-10-PCS; principal; 2018-11-28)
PROC: 30233N1 Transfusion of Nonautologous Red Blood Cells into Peripheral Vein, Percutaneous Approach (ICD-10-PCS; 2018-11-29)
PROC: 30233N1 Transfusion of Nonautologous Red Blood Cells into Peripheral Vein, Percutaneous Approach (ICD-10-PCS; 2018-11-30)
PROC: 30233N1 Transfusion of Nonautologous Red Blood Cells into Peripheral Vein, Percutaneous Approach (ICD-10-PCS; 2018-12-01)
DX: J18.1 Lobar pneumonia, unspecified organism (principal); J96.91 Respiratory failure, unspecified with hypoxia; N17.9 Acute kidney failure, unspecified; E87.2 Acidosis; Z51.5 Encounter for palliative care; Z66 Do not resuscitate; N18.3 Chronic kidney disease, stage 3 (moderate); D50.0 Iron deficiency anemia secondary to blood loss (chronic); R79.1 Abnormal coagulation profile; G30.9 Alzheimer's disease, unspecified; F02.80 Dementia in other diseases classified elsewhere, unspecified severity, without behavioral disturbance, psychotic disturbance, mood disturbance, and anxiety; R09.02 Hypoxemia; R53.1 Weakness; I25.10 Atherosclerotic heart disease of native coronary artery without angina pectoris; S70.11XA Contusion of right thigh, initial encounter; W19.XXXA Unspecified fall, initial encounter; Z95.1 Presence of aortocoronary bypass graft; Z95.2 Presence of prosthetic heart valve; E55.9 Vitamin D deficiency, unspecified; M85.80 Other specified disorders of bone density and structure, unspecified site; I34.0 Nonrheumatic mitral (valve) insufficiency; E78.00 Pure hypercholesterolemia, unspecified; H54.7 Unspecified visual loss; Z79.82 Long term (current) use of aspirin; Z79.01 Long term (current) use of anticoagulants
CPT/HCPCS: 36415; 36430; 71045; 73502-RT; 80048; 80053; 82607; 82728; 82746; 83550; 83605; 83615; 83735; 85018; 85025; 85045; 85610; 86850; 86900; 86901; 86920; 86922; 87040; 94762; 97110-GP; 97162-GP; 99284; 99285-25; A9270-GY; J0696; J1956; J2916; J3430; J7030; J7050; P9016